=== PATIENT | female | born 1935 | race Caucasian/White ===

== ENCOUNTER 2023-03-31 15:23 | Emergency (ER) | payer MEDICARE, SELFPAY ==
[2023-03-31 15:25] VITALS: BP 152/89; PULSE 90; RESP 16; TEMP 36.5; O2SAT 99
--- NOTE | 2023-03-31 15:25 | ECG_ITS ---
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 Measurements Intervals [place] Rate: 80 P: 53 NM: 157 QRS: 15 QRSD: 85 T: 51 QT: 371 QTc: 429 Interpretive Statements SINUS RHYTHM WITH OCCASIONAL VENTRICULAR PREMATURE COMPLEXES MINIMAL ST DEPRESSION [0.025+ mV ST DEPRESSION] No previous ECG available for comparison Electronically Signed On 03-31-2023 17:23:32 CDT by Hiram Bernabe M.D. [email or web address]
--- NOTE | 2023-03-31 15:26 | XR_ITS ---
WS: [id number] EXAMINATION: XR chest 1V portable [id number] REASON FOR EXAM: dyspnea/cough COMPARISON: None available. ORDER DATE: 03/31/2023 3:28 PM FINDINGS: There are scattered perihilar granulomatous calcifications. There are chronically increased perihilar /basilar bronchovascular and interstitial thickening with hyperinflation. The cardiac and mediastin al outlines are unremarkable. There are no pleural effusions. There are no discrete noncalcified pulm onary nodules. Chronic degenerative spine changes are present which includes septic dextroscoliosis i n the upper thoracic region. There are subacute healing fractures involving the first through the six th left ribs. XR/XR chest 1V portable [id number] IMPRESSION: DIFFUSE PULMONARY CHANGES OF COPD. NO ACUTE PULMONARY CHANGE. NUMEROUS LEFT RIB HEALING FRACTURES
[2023-03-31 15:41] LABS: Basophils # 0.1 10^3/uL (0.0-0.1); Basophils % 0.7 %; Eosinophils # 0.2 10^3/uL (0.0-0.8); Eosinophils % 2.2 %; Hematocrit 38.8 % (37.0-47.0); Lymphocytes # 2.5 10^3/uL (0.8-4.8); Mean Corpuscular HGB Conc 33.5 g/dL (30.0-36.0); Mean Corpuscular Hemoglobin 28.6 pg (28.0-34.0); Mean Corpuscular Volume 85.5 fl (81-99); Mean Platelet Volume 9.1 fL (7.4-10.4); Monocytes # 0.7 10^3/uL (0.2-0.9); Monocytes % 9.5 %; Neutrophils # 3.43 10^3/uL (1.8-7.7); Neutrophils % 50.2 %; Nucleated Red Blood Cells % 0 %; Platelet Count 351 10^3/cmm (130-400); Red Blood Count 4.54 10^6/uL (4.1-5.3); Red Cell Distribution Width 14.2 % (12.1-15.1); White Blood Count 6.8 10^3/uL (4.0-10.0)
--- NOTE | 2023-03-31 15:52 | CTR_ITS ---
PROCEDURE INFORMATION: Exam: CT Head Without Contrast Exam date and time: 03/31/2023 3:56 PM Age: 87 years old Clinical indication: Injury or trauma; Fall; Blunt trauma (contusions or hematomas); Additional info: Trauma, closed head injury TECHNIQUE: Imaging protocol: Computed tomography of the head without contrast. Radiation optimization: All CT scans at this facility use at least one of these dose optimization techniques: automated exposure control; mA and/or kV adjustment per patient size (includes targeted exams where dose is matched to clinical indication); or iterative reconstruction. REPORTING DATA: Count of CT and Cardiac NM exams in prior 12 months: This patient has received 0 known CTs and 0 known cardiac nuclear medicine studies in the 12 months prior to the current study. COMPARISON: No relevant prior studies available. RADIATION DOSE METRICS: Total DLP (mGy-cm): 1050.98 FINDINGS: Brain: Atrophic or involutional change for age indicates volume loss. Diffuse chronic small-vessel disease change in the periventricular deep white matter. No intracranial hemorrhage or hematoma is seen. No mass effect or shift of midline structures. No findings to indicate territorial or large vessel ischemic infarct. Cerebral ventricles: Ventricular enlargement with atrophy. Paranasal sinuses: Visualized sinuses are unremarkable. No fluid levels. Mastoid air cells: Visualized mastoid air cells are well aerated. Bones/joints: Bone windows of the skull show no fracture or acute osseous abnormality. Soft tissues: Soft tissue scalp swelling/hematoma on the left. CT/CT head wo con* [id number] IMPRESSION: 1. Chronic changes related to atrophy or volume loss and chronic small-vessel disease change bilaterally. 2. No acute intracranial abnormality. 3. Left-sided scalp swelling/hematoma. No findings of skull fracture.
[2023-03-31 15:57] VITALS: BP 137/92; BP 158/92; BP 166/100; PULSE 82; PULSE 87; PULSE 89
[2023-03-31 15:57] LABS: Alanine Aminotransferase 13 U/L (0-33); Albumin Level 4.4 g/dL (3.5-5.2); Alkaline Phosphatase 102 U/L (35-105); Anion Gap 15.6 (5-19); Aspartate Amino Transferase 16 U/L (0-32); Blood Urea Nitrogen 17 mg/dL (8-23); Calcium 9.3 mg/dL (8.5-10.5); Carbon Dioxide 27 mmol/L (22-29); Chloride 101 mmol/L (98-107); Globulin 2.6 g/dL (1.3-4.6); Glucose 99 mg/dL (65-115); Osmolality Calculated 292 mOsm/kg (285-295); Potassium 3.6 mmol/L (3.5-5.1); Sodium 140 mmol/L (136-145); Total Bilirubin 0.2 mg/dL (0.15-1.2)
[2023-03-31 15:58] VITALS: BP 136/92; PULSE 87; O2SAT 98
[2023-03-31 16:34] VITALS: BP 139/78; PULSE 78; O2SAT 90
--- NOTE | 2023-03-31 17:04 | W.ED.SYNCOPE ---
HPI - Syncope General: Chief Complaint: Syncope Stated Complaint: syncope Time Seen by Provider: 03/31/23 15:25 Source: patient Mode of arrival: EMS History of Present Illness: 87-year-old female presents to the emergency room after syncopal episode while at the eye doctor. She was at check-in and had been standing she fell to the ground hit her head on the floor had loss conscious on arrival here she is awake alert but very disoriented. She is not aware of time place or person. She thinks she is in [place] she has a known history of severe dementia and she denies abdominal or chest pain or any other symptoms. MD complaint: loss of consciousness Onset (ago): minute(s) Duration of episode: 3 -: minutes(s) Prodromal symptoms: none Witnessed: Yes - by Bystander Injuries sustained associated with event: none Associated symptoms: Deny abdominal pain, chest pain, fever(s), headache(s), lightheadedness, nausea, short of breath, vertigo or weakness Treatments prior to arrival: none Review of Systems General: Reports: ROS unobtainable due to mental status Const: Denies: fever(s) Card: Denies: chest pain or lightheadedness GI: Denies: abdominal pain or nausea Neuro: Denies: headache(s) or vertigo PFSH ED PFSH: Medical History (Updated 03/31/23 @ 17:30 by Rakesh Owusu DO) Dementia Physical Exam Const: GENERAL APPEARANCE: cooperative and comfortable ORIENTATION/CONSCIOUSNESS: Yes awake, Yes oriented to person, Yes oriented to place and Yes oriented to time HENMT: COMMON NORMALS: normocephalic, atraumatic and hearing grossly normal bilaterally HEAD & SCALP: normocephalic and atraumatic Resp: COMMON NORMALS: normal respiratory effort, No retractions, No use of accessory muscles and clear to auscultation bilaterally AUSCULTATION: clear to auscultation bilaterally Cardio: COMMON NORMALS: regular rate, regular rhythm and No murmurs present (Cardio) RATE: regular rate RHYTHM: regular rhythm GI: COMMON NORMALS: Soft to palpation and No hepatosplenomegaly present AUSCULTATION: Yes normoactive bowel sounds PALPATION: Yes Soft to palpation, No Tenderness to palpation present (GI), No Guarding due to palpation present (GI) and Yes No hepatosplenomegaly present Extremity: COMMON NORMALS: normal to inspection, capillary refill normal, no clubbing, cyanosis or edema, no calf tenderness and no pedal edema Neuro: SENSORIUM/ORIENTATION: Yes oriented to person, Yes oriented to place and Yes oriented to time Skin: COMMON NORMALS: no rashes or lesions noted GENERAL SKIN EXAM: no rashes or lesions noted Course Vital Signs: Vital signs: Vital Signs Temperature 97.7 F 03/31/23 15:25 Pulse Rate 99 03/31/23 17:47 Respiratory Rate 16 03/31/23 15:25 Blood Pressure 168/96 03/31/23 17:47 Pulse Oximetry 94 03/31/23 17:47 Oxygen Delivery Me thod Room Air 03/31/23 15:25 MDM - Syncope Medical Decision Making Labs and imaging reviewed. CT is unremarkable. Family wishes to take patient home. She is confused she definitely wants to go home. We will ambulate her without any difficulty discharge patient home set up for outpatient echocardiogram and 48-hour Holter monitor. Return if she has further problems. Medical Records I reviewed the patient's medical records. Lab Data I reviewed the patient's lab results. 03/31/23 15:30 03/31/23 15:30 Radiology Impressions Chest X-Ray 03/31/23 15:26 IMPRESSION: DIFFUSE PULMONARY CHANGES OF COPD. NO ACUTE PULMONARY CHANGE. NUMEROUS LEFT RIB HEALING FRACTURES Head CT 03/31/23 15:52 IMPRESSION: 1. Chronic changes related to atrophy or volume loss and chronic small-vessel disease change bilaterally. 2. No acute intracranial abnormality. 3. Left-sided scalp swelling/hematoma. No findings of skull fracture. Laboratory Results WBC 6.8 10^3/uL (4.0-10.0) 03/31/23 15:30 RBC 4.54 10^6/uL (4.1-5.3) 03/31/23 15:30 Hgb 13.0 g/dL (11.5-15.3) 03/31/23 15:30 Hct 38.8 % (37.0-47.0) 03/31/23 15:30 MCV 85.5 fl (81-99) 03/31/23 15:30 MCH 28.6 pg (28.0-34.0) 03/31/23 15:30 MCHC 33.5 g/dL (30.0-36.0) 03/31/23 15:30 RDW 14.2 % (12.1-15.1) 03/31/23 15:30 Plt Count 351 10^3/cmm (130-400) 03/31/23 15:30 MPV 9.1 fL (7.4-10.4) 03/31/23 15:30 Neut % (Auto) 50.2 % 03/31/23 15:30 Lymph % (Auto) 37.0 % 03/31/23 15:30 [place] % (Auto) 9.5 % 03/31/23 15:30 Eos % (Auto) 2.2 % 03/31/23 15:30 Baso % (Auto) 0.7 % 03/31/23 15:30 Neut # (Auto) 3.43 10^3/uL (1.8-7.7) 03/31/23 15:30 Lymph # (Auto) 2.5 10^3/uL (0.8-4.8) 03/31/23 15:30 [place] # (Auto) 0.7 10^3/uL (0.2-0.9) 03/31/23 15:30 Eos # (Auto) 0.2 10^3/uL (0.0-0.8) 03/31/23 15:30 Baso # (Auto) 0.1 10^3/uL (0.0-0.1) 03/31/23 15:30 Nucleated RBC % (auto) 0 % 03/31/23 15:30 Nucleated RBCs # 0.0 /100WBC 03/31/23 15:30 Sodium 140 mmol/L (136-145) 03/31/23 15:30 Potassium 3.6 mmol/L (3.5-5.1) 03/31/23 15:30 Chloride 101 mmol/L (98-107) 03/31/23 15:30 Carbon Dioxide 27 mmol/L (22-29) 03/31/23 15:30 Anion Gap 15.6 (5-19) 03/31/23 15:30 BUN 17 mg/dL (8-23) 03/31/23 15:30 Creatinine 0.7 mg/dL (0.5-0.9) 03/31/23 15:30 GFR Calculation Not Reportable 03/31/23 15:30 Glucose 99 mg/dL (65-115) 03/31/23 15:30 Calculated Osmolality 292 mOsm/kg (285-295) 03/31/23 15:30 Calcium 9.3 mg/dL (8.5-10.5) 03/31/23 15:30 Total Bilirubin 0.2 mg/dL (0.15-1.2) 03/31/23 15:30 AST 16 U/L (0-32) 03/31/23 15:30 ALT 13 U/L (0-33) 03/31/23 15:30 Alkaline Phosphatase 102 U/L (35-105) 03/31/23 15:30 Total Protein 7.0 g/dL (6.6-8.7) 03/31/23 15:30 Albumin 4.4 g/dL (3.5-5.2) 03/31/23 15:30 Globulin 2.6 g/dL (1.3-4.6) 03/31/23 15:30 Discharge Plan Discharge Patient Disposition: Home Clinical Impression: Syncope due to orthostatic hypotension, Dementia Condition: Stable Discharge Orders: Discharge ED (Routine); Ordered 03/31/23 Ordered By: Rakesh Owusu Referrals: Claudio Parrish [Primary Care Provider] - Discharge Diet: Usual diet Discharge Activity: Increase activity as tolerated Patient Instructions: Opioid Safety, Pain Management Activity Restrictions/Additional Instructions: You were seen today after a single episode recommend that you have an outpatient echocardiogram and 48-hour Holter monitor Case management make arrangements for these follow-up with your primary care physician after this. Coding Level of Care Code ED Sound Technician for Huma Springer
[2023-03-31 17:47] VITALS: BP 168/96; PULSE 99; O2SAT 94
--- NOTE | 2023-04-01 10:59 | PC.SOCIAL ---
Addendum entered by Ellie Fournier 04/30/23 12:33: Both of these appointments were cancelled Addendum entered by Ellie Fournier 04/18/23 12:37: Patient has a 48 hour halter monitor scheduled for Friday, April 23, 2023 at [facility]. Original Note: Orders for echo faxed to [facility], and orders for heart monitor faxed to both centralized scheduling as well as cardiology clinic.
== END 2023-03-31 17:48 | disposition home or self-care (01) ==
PROVIDERS: Emergency Provider Family Medicine; PCP Family Medicine
DX: I95.1 Orthostatic hypotension (principal); F03.90 Unspecified dementia, unspecified severity, without behavioral disturbance, psychotic disturbance, mood disturbance, and anxiety
CPT/HCPCS: 70450; 71045; 80053; 85025; 93005; 99285

== ENCOUNTER 2023-10-24 13:45 | Inpatient (IN) | payer MEDICARE, SELFPAY ==
[2023-10-24] VITALS (9 sets, daily range): BP systolic 141–163; BP diastolic 80–97; PULSE 61–82; RESP 14–18; TEMP 36.8–37.6; O2SAT 94–97; BMI 18.1; BMI 18.7
--- NOTE | 2023-10-24 14:32 | ED_ITS ---
HPI - Weakness 2 General: Chief complaint: Weakness Stated complaint: weakness Time Seen by Provider: 10/24/23 14:15 Source: family Mode of arrival: wheelchair Limitations: altered mental status (chronic dementia) History of Present Illness: Patient is an 88-year-old female with a history of dementia and interstitial lung disease here along with her , son, and daughter for concerns of weakness and inability to care for herself. Son states a few weeks ago he, himself, developed the crud that is going around consisting of cough/congestion. He states last week his father/patient's developed similar symptoms and then the patient starting having cough/congestion about 4 days ago. Family states the recent illness has caused her to be so weak she is unable to ambulate or care for herself at home. Family states she is not eating. is 89 and recently underwent heart surgery and cannot care for her either. Daughter is flying back home tomorrow and can no longer stay to care for her. They feel like her dementia has significantly worsened over the past 3 months. She is not running fevers. No vomiting or diarrhea. They state her chest rattles and she is too weak to cough up the mucous. MD Complaint: generalized weakness Onset (ago): day(s) Duration: constant Location: generalized Migration: none Severity: moderate Relieving factors: none Exacerbating factors: none Context: recent illness Associated symptoms: Denies chest pain, chills, dysuria, fever(s), headache(s), nausea, syncope or vomiting Review of Systems 2 Const: Reports: fatigue; Denies: fever(s), chills or body aches Eyes: Denies: change in vision, blurry vision, photophobia, eye discomfort, eye discharge, eye redness, yellow eyes, floaters or seeing flashes ENMT: Denies: throat pain, odynophagia, ear or mastoid pain, nasal discharge, nasal congestion or sinus pain Card: Reports: orthopnea (family states she rattles more when lying flat); Denies: chest pain, palpitations, edema, swelling of feet/ankles, lightheadedness, syncope, pre-syncope, dyspnea on exertion, leg pain with exertion or acrocyanosis Resp: Reports: productive cough and chest congestion; Denies: non-productive cough, wheezing, stridor, pain on inspiration or hemoptysis GI: Denies: abdominal pain, nausea, vomiting or diarrhea : Reports: other (chronic incontinence ); Denies: flank pain or dysuria Musc: Denies: neck pain, back pain, extremity pain or joint pain Skin/Breast: Denies: rash Neuro: Reports: difficulty walking (secondary to weakness); Denies: headache(s), numbness in extremities, sensory changes, lack of coordination or dizziness PFSH ED 2 PFSH: Medical History Dementia Physical Exam 2 Const: COMMON NORMALS: no acute distress and alert EXAM LIMITATIONS: a ltered mental status (chronic dementia) GENERAL APPEARANCE: cooperative N UTRITIONAL APPEARANCE: thin ORIENTATION/CONSCIOUSNESS: Yes awake and Yes oriented to person HENMT: COMMON NORMALS: normocephalic, atraumatic and Normal external nose present HEAD & SCALP: normal to inspection, normocephalic and atraumatic F DREW & SINUS: normal facial exam and face symmetric NOSE: Normal external nose present MOUTH: Normal oral and palatal mucosa present and lip normal T HROAT: posterior oropharynx normal and tonsils normal Eye: GENERAL EYE: appearance normal, both eyes and all related structures Neck/C-Spine: COMMON NORMALS: no lymphadenopathy and no meningeal signs Chest: COMMONS NORMALS: normal inspection of the chest and normal palpation of entire chest wall Resp: COMMON NORMALS: normal respiratory effort and clear to auscultation bilaterally AUSCULTATION: clear to auscultation bilaterally Cardio: COMMON NORMALS: regular rate and regular rhythm RATE: regular rate RHYTHM: regular rhythm GI: COMMON NORMALS: Normal to inspection, nondistended, normoactive bowel sounds present, Soft to palpation and non-tender PALPATION: Yes Soft to palpation : COMMON NORMALS: Yes no CVA tenderness BLADDER/KIDNEY EXAM: Yes no CVA tenderness Back/Pelvis: COMMON NORMALS: no CVA tenderness and thoracic and lumbar spine normal to inspection Extremity: COMMON NORMALS: normal to inspection GENERAL: Yes normal exam except as noted Neuro: OMER COMA SCALE: document GCS findings [place] coma scale eye opening: Spontaneous [place] coma scale verbal response: Orientated [place] coma scale motor response: Obey commands [place] coma scale total score: 15 COMMON NORMALS: moves all extremities, no focal motor deficits and no sensory deficits noted SENSORIUM/ORIENTATION: Yes alert and Yes oriented to person M ENINGEAL SIGNS: Yes no meningeal signs GAIT: Yes Unable to assess gait Skin: COMMON NORMALS: no rashes or lesions noted GENERAL SKIN EXAM: no rashes or lesions noted Course 2 Vital Signs: Vital signs: Vital Signs Temperature 98.2 F 10/24/23 13:52 Pulse Rate 71 10/24/23 15:04 Respiratory Rate 16 10/24/23 15:04 Blood Pressure 150/81 10/24/23 15:04 Pulse Oximetry 96 10/24/23 15:04 Oxygen Delivery Me thod Room Air 10/24/23 15:04 MDM - Weakness Medical Decision Making Patient is an 88-year-old female here along with family for concerns of upper respiratory illness that has caused patient's significant weakness, decline of her dementia, and inability to care for herself. Patient lives with her 91-year-old who is unable to care for her. Patient's blood work overall is fairly unremarkable. Her cathed urine specimen is contaminated. CXR is unremarkable. At this time I am unable to send patient home as she is not able to care for herself at home and her cannot care for her either. I spoke to hospitalist Dr. De La Rosa who is graciously willing to admit patient. Lab Data 10/24/23 14:42 10/24/23 14:42 Laboratory Results WBC 4.63 10^3/uL (3.29-11.43) 10/24/23 14:42 RBC 4.52 10^6/uL (3.85-5.65) 10/24/23 14:42 Hgb 12.90 g/dL (11.27-16.99) 10/24/23 14:42 Hct 38.0 % (36-47) 10/24/23 14:42 MCV 84.1 fl (85-98) L 10/24/23 14:42 MCH 28.5 pg (27-33) 10/24/23 14:42 MCHC 33.9 g/dL (30-55) 10/24/23 14:42 RDW 15.9 % (12.1-15.1) H 10/24/23 14:42 Plt Count 256 10^3/cmm (157-399) 10/24/23 14:42 MPV 8.7 fL (7.4-10.4) 10/24/23 14:42 Neut % (Auto) 67.7 % 10/24/23 14:42 Lymph % (Auto) 18.6 % 10/24/23 14:42 [place] % (Auto) 12.5 % 10/24/23 14:42 Eos % (Auto) 0.2 % 10/24/23 14:42 Baso % (Auto) 0.6 % 10/24/23 14:42 Neut # (Auto) 3.13 10^3/uL (1.8-7.7) 10/24/23 14:42 Lymph # (Auto) 0.9 10^3/uL (0.8-4.8) 10/24/23 14:42 [place] # (Auto) 0.6 10^3/uL (0.2-0.9) 10/24/23 14:42 Eos # (Auto) 0.0 10^3/uL (0.0-0.8) 10/24/23 14:42 Baso # (Auto) 0.0 10^3/uL (0.0-0.1) 10/24/23 14:42 Nucleated RBC % (auto) 0 % 10/24/23 14:42 Nucleated RBCs # 0.0 /100WBC 10/24/23 14:42 Sodium 136 mmol/L (136-145) 10/24/23 14:42 Potassium 4.0 mmol/L (3.5-5.1) 10/24/23 14:42 Chloride 96 mmol/L (98-107) L 10/24/23 14:42 Carbon Dioxide 27 mmol/L (22-29) 10/24/23 14:42 Anion Gap 17.0 (5-19) 10/24/23 14:42 BUN 16 mg/dL (8-23) 10/24/23 14:42 Creatinine 0.7 mg/dL (0.5-0.9) 10/24/23 14:42 GFR Calculation Not Reportable 10/24/23 14:42 Glucose 113 mg/dL (65-115) 10/24/23 14:42 Calculated Osmolality 284 mOsm/kg (285-295) L 10/24/23 14:42 Calcium 9.5 mg/dL (8.5-10.5) 10/24/23 14:42 Total Bilirubin 0.3 mg/dL (0.15-1.2) 10/24/23 14:42 AST 20 U/L (0-32) 10/24/23 14:42 ALT 18 U/L (0-33) 10/24/23 14:42 Alkaline Phosphatase 75 U/L (35-105) 10/24/23 14:42 Total Protein 7.0 g/dL (6.6-8.7) 10/24/23 14:42 Albumin 3.9 g/dL (3.5-5.2) 10/24/23 14:42 Globulin 3.1 g/dL (1.3-4.6) 10/24/23 14:42 Urine Color Yellow (Yellow) 10/24/23 15:22 Urine Appearance Hazy (CLEAR) A 10/24/23 15:22 Urine pH 5 (5-7) 10/24/23 15:22 Ur Specific [place] 1.025 (1.005-1.030) 10/24/23 15:22 Urine Protein Trace (Negative) 10/24/23 15:22 Urine Glucose (UA) Norm (Normal) 10/24/23 15:22 Urine Ketones 1+ (Negative) H 10/24/23 15:22 Urine Blood 3+ (Negative) H 10/24/23 15:22 Urine Nitrate Negative (Negative) 10/24/23 15:22 Urine Bilirubin Neg (Negative) 10/24/23 15:22 Urine Urobilinogen Norm mg/dL (Negative) 10/24/23 15:22 Ur Leukocyte Esterase 1+ (Negative) H 10/24/23 15:22 Urine RBC 0-4 /hpf (0-2) H 10/24/23 15:22 Urine WBC 5-10 /hpf (0-5) H 10/24/23 15:22 Ur Squamous Epith Cells 15-25 /hpf (0-5) H 10/24/23 15:22 Amorphous Sediment Not Reportable 10/24/23 15:22 Urine Bacteria Trace /hpf (NONE) 10/24/23 15:22 All radiology interpretation(s) finalized by discharge Discharge Plan Discharge Patient Disposition: Admitted As Inpatient Clinical Impression: Unable to care for self, Upper respiratory infection, Dementia Condition: Stable Referrals: Claudio Parrish [Primary Care Provider] - Coding Level of Care Code ED Security And Privacy Consultant for Stephanieg iGan
--- NOTE | 2023-10-24 14:32 | XR_ITS ---
WS: [id number] PORTABLE CHEST HISTORY: chest pain COMPARISON: 03/31/2023 Mild pulmonary fibrosis, greatest at the lung bases. There is similar to the prior study. No areas of dense consolidation. Pulmonary vasculature appears similar to the prior study. No pleural effusion o r pneumothorax. Cardiac size: Mildly enlarged cardiac silhouette. Mediastinum/Aorta: Mild atherosclerosis aorta. Osteopenia. Nonunion fracture distal LEFT clavicle. Additional healing fractures involving several ri bs of the upper LEFT thorax. IMPRESSION: 1. Pulmonary fibrosis with no pneumonia. 2. Mild cardiomegaly and atherosclerosis aorta.
[2023-10-24 14:48] LABS: Basophils % 0.6 %; Eosinophils % 0.2 %; Lymphocytes # 0.9 10^3/uL (0.8-4.8); Lymphocytes % 18.6 %; Mean Corpuscular HGB Conc 33.9 g/dL (30-55); Mean Corpuscular Hemoglobin 28.5 pg (27-33); Mean Corpuscular Volume 84.1 fl (85-98); Mean Platelet Volume 8.7 fL (7.4-10.4); Monocytes # 0.6 10^3/uL (0.2-0.9); Monocytes % 12.5 %; Neutrophils # 3.13 10^3/uL (1.8-7.7); Neutrophils % 67.7 %; Nucleated Red Blood Cells % 0 %; Platelet Count 256 10^3/cmm (157-399); Red Blood Count 4.52 10^6/uL (3.85-5.65); Red Cell Distribution Width 15.9 % (12.1-15.1); White Blood Count 4.63 10^3/uL (3.29-11.43)
[2023-10-24] MEDS: sodium chloride 0.9% 500 ML IV (15:02)
[2023-10-24 15:05] LABS: Alanine Aminotransferase 18 U/L (0-33); Albumin Level 3.9 g/dL (3.5-5.2); Alkaline Phosphatase 75 U/L (35-105); Aspartate Amino Transferase 20 U/L (0-32); Blood Urea Nitrogen 16 mg/dL (8-23); Calcium 9.5 mg/dL (8.5-10.5); Carbon Dioxide 27 mmol/L (22-29); Chloride 96 mmol/L (98-107); Globulin 3.1 g/dL (1.3-4.6); Glucose 113 mg/dL (65-115); Osmolality Calculated 284 mOsm/kg (285-295); Sodium 136 mmol/L (136-145); Total Bilirubin 0.3 mg/dL (0.15-1.2)
--- NOTE | 2023-10-24 15:27 | PC.NURSE ---
PT ARRIVED TO ED FOR WEAKNESS, DECREASED COGNITIVE ABILITY WITH DEMENTIA AND COUGH. FAMILY REPORTS PT HAS SOME PHLEM BUT IS UNABLE TO COUGH IT UP.
[2023-10-24 15:33] LABS: Add Urine Culture? No; Add Urine Microscopic? YES; Bacteria Urine TRACE /hpf; Bilirubin Urine Neg (Negative); Blood Urine 3+ (Negative); Glucose Urine UA Norm (Normal); Ketones Urine 1+ (Negative); Leukocyte Esterase Urine 1+ (Negative); Nitrate Urine Negative (Negative); Protein Urine Trace (Negative); RBC Urine 0-4 /hpf (0-2); Specific Gravity, Urine 1.025 (1.005-1.030); Squamous Epithelial Cell Urine 15-25 /hpf (0-5); Urine Appearance Hazy (CLEAR); Urine Color Yellow (Yellow); Urobilinogen Urine Norm (Negative); pH Urine 5 (5-7)
--- NOTE | 2023-10-24 16:30 | CTR_ITS ---
PROCEDURE INFORMATION: Exam: CT Head Without Contrast Exam date and time: 10/24/2023 4:41 PM Age: 88 years old Clinical indication: Altered mental status/memory loss; Confusion or disorientation; Additional info: AMS TECHNIQUE: Imaging protocol: Computed tomography of the head without contrast. Radiation optimization: All CT scans at this facility use at least one of these dose optimization techniques: automated exposure control; mA and/or kV adjustment per patient size (includes targeted exams where dose is matched to clinical indication); or iterative reconstruction. COMPARISON: CT head wo con* [id number] 03/31/2023 3:56 PM RADIATION DOSE METRICS: Total DLP (mGy-cm): 824.48 FINDINGS: Brain: No hemorrhage. Chronic white matter and senescent changes similar to prior exam. No findings to suggest acute infarct. Cerebral ventricles: Reflect volume loss. Paranasal sinuses: Visualized sinuses are grossly clear with minimal mucosal thickening and/or retention cyst formation. Mastoid air cells: No mastoid effusion. Bones/joints: No acute findings. Soft tissues: No acute findings. CT/CT head wo con* [id number] IMPRESSION: No acute intracranial abnormality. Chronic white matter and senescent changes.
--- NOTE | 2023-10-24 16:30 | CTR_ITS ---
PROCEDURE INFORMATION: Exam: CT Chest Without Contrast; Diagnostic Exam date and time: 10/24/2023 4:45 PM Age: 88 years old Clinical indication: Dyspnea; Additional info: SOB TECHNIQUE: Imaging protocol: Diagnostic computed tomography of the chest without contrast. Radiation optimization: All CT scans at this facility use at least one of these dose optimization techniques: automated exposure control; mA and/or kV adjustment per patient size (includes targeted exams where dose is matched to clinical indication); or iterative reconstruction. COMPARISON: CR XR chest 1V portable [id number] 10/24/2023 2:55 PM RADIATION DOSE METRICS: Total DLP (mGy-cm): 250.48 FINDINGS: Lungs: Interstitial and fibrotic changes with extensive subpleural reticulation and honeycombing, bronchiectasis and a lower lobe gradient. Areas of more focal consolidation peripherally embedded within the fibrotic changes see series 5, image 35. Pleural spaces: No pneumothorax or pleural effusion. Heart: Coronary calcifications. No pericardial effusion. Lymph nodes: Slightly prominent mediastinal/hilar lymph nodes likely reactive. Vasculature: Ascending aorta measures 4.3 cm. Bones/joints: No acute findings Soft tissues: No acute findings. CT/CT chest wo con [id number] IMPRESSION: Fibrotic lung disease with superimposed opacities likely infectious/inflammatory. 4.3 cm diameter of the ascending aorta.
--- NOTE | 2023-10-24 16:30 | XRR_ITS ---
PROCEDURE INFORMATION: Exam: XR Bilateral Hips Exam date and time: 10/24/2023 5:11 PM Age: 88 years old Clinical indication: Pain; Other: Weakness; Additional info: Weakness, inability to walk TECHNIQUE: Imaging protocol: Radiologic exam of the bilateral hips. Views: 2 views of hips with pelvis when performed. COMPARISON: No relevant prior studies available. FINDINGS: Bones/joints: Slight cortical irregularity of the medial left pubic ramus. No femoral fracture or hip dislocation. Moderate bilateral hip osteoarthritis. Soft tissues: No acute findings. XR/XR hip BI 3-4V wo/w pel [id number] IMPRESSION: Cortical irregularity of the left pubic ramus is favored to chronic finding. If there is further clinical concern CT can provide further characterization.
--- NOTE | 2023-10-24 16:38 | P.HP_ITS ---
Providers/Chief Complaint 2 Primary Care Provider: Claudio Parrish Chief Complaint: weakness History of Present Illness Khloe Smith is a 88 year old female with a past medical history of interstitial lung disease, history of dementia, history of aortic aneurysm, who presents to [facility] due to increased weakness, increased confusion, poor appetite, cough, congestion. Patient has a history of dementia, diagnosed by primary care, at baseline about 6 months ago patient was able to walk, with a walker, able to feed herself, family does note coughing at times when she eats, she has had a few falls, resulting in a clavicular fracture, rib fractures, no falls in the last month that they can remember, her memory she could recognize family members, recognize has been. But recently for the last week, the whole family has been sick, with cough congestion runny nose which she has also developed. She has cough, congestion, patient's son tells me that last night they thought she was in a pass away, she looked very ill, she looks short of breath. She is also not eating and drinking, she has been increasingly confused, she has been bedbound. Patient's family have noticed a rapid decline in her functioning and her cognitive abilities, she is less cognizant, at bedside she can recognize her , can recognize her son but cannot remember his name. She can carry out simple conversation she is able to smile for me, but not able to carry out any other task she becomes confused. Patient's family tells me that she has been diagnosed with interstitial lung disease roughly 4-5 years ago and the general studies program chair who gave her that diagnosis told her that it was a terminal diagnosis and she would only have 4 to 7 years to live. Patient's family's concern is that she is not eating and drinking for the last few days, she has been less mobile increasingly confused, having cough congestion, she cannot move on her own, she requires total assistance of activities of daily living. And they are worried about her rapid decline in functioning. Patient's has had heart surgery and cannot take care of her, and patient's son and daughter do not live locally and they have to go back home in the next few days. Patient tells me that patient had a ER visit roughly a few months ago for a syncopal episode she passed out she hit her head, they have never figured out what happened Review of Systems 2 General: Reports: ROS unobtainable due to mental status Medications/Allergies Allergies Allergy/AdvReac Type Severity Reaction Status Date / Time No Known Allergies Allergy Verified 03/31/23 15:29 PFSH Acute 2 PFSH: Medical History (Updated 10/24/23 @ 16:48 by Jack De La Rosa MD) History of aortic aneurysm History of interstitial lung disease Dementia Surgical History (Updated 10/24/23 @ 16:43 by Jack De La Rosa MD) H/O: hysterectomy Family History (Updated 10/24/23 @ 16:44 by Jack De La Rosa MD) Other CAD (coronary artery disease) Social History (Updated 10/24/23 @ 16:44 by Jack De La Rosa MD) Smoking and tobacco/nicotine status: former use of tobacco/nicotine Alcohol intake: never Substance/Drug Use: never Additional social history: She smoked cigarettes in her 20s, does not smoke since Vitals/I&O/Wt Last Vital Signs Temp 98.2 F 10/24/23 13:52 Pulse 71 10/24/23 15:04 Resp 16 10/24/23 15:04 BP 150/81 10/24/23 15:04 Pulse Ox 96 10/24/23 15:04 O2 Del Method Room Air 10/24/23 15:04 Weight last 48 hrs Weight 52.617 kg Physical Exam 2 Const: COMMON NORMALS: no acute distress EXAM LIMITATIONS: altered mental status ORIENTATION/CONSCIOUSNESS: Yes awake, Yes oriented to person and Yes confused; not oriented to place and not oriented to time OTHER: Evidence of temporal muscle wasting, bilateral arms shoulders bilateral calves muscle wasting HENMT: OTHER: Bilateral cervical lymphadenopathy Eye: COMMON NORMALS: Equal, round and reactive pupils present Neck/C-Spine: OTHER: Has cervical lymphadenopathy, Resp: COMMON NORMALS: normal respiratory effort, No retractions and No use of accessory muscles OTHER: Scattered wheezing and crackles in right lower lung rodriguez, Cardio: COMMON NORMALS: no JVD, regular rate, regular rhythm, S1 normal heart sound present and S2 normal heart sound present RATE: regular rate RHYTHM: regular rhythm HEART SOUNDS: S1 normal heart sound present and S2 normal heart sound present GI: COMMON NORMALS: Normal to inspection, nondistended, normoactive bowel sounds present, Soft to palpation and non-tender Extremity: COMMON NORMALS: no pedal edema Neuro: OTHER: Does not follow neurologic testing, but can smile for me, recognize at bedside, does not recognize son Data 10/24/23 14:42 10/24/23 14:42 A&P Assessment and plan (1) Physical deconditioning: (2) Protein calorie malnutrition: (3) Muscle wasting: (4) Dehydration: (5) UTI (urinary tract infection): (6) Respiratory tract infection: (7) Altered mental status: Plan Altered mental status ? Possibly secondary to UTI, possible aspiration pneumonia, respiratory tract infection, dehydration -CT of the head -Ammonia levels, TSH, troponin series Acute dehydration, ? IV fluids UTI ?continue Rocephin Respiratory tract infection, ? Possible aspiration, does have crackles in right lung rodriguez ? Rocephin as above -Await respiratory viral panel -CT chest Physical deconditioning, protein calorie malnutrition, muscle wasting ? PT OT, ? Speech therapy eval, ? Dietary eval code ? Placed on aspiration precautions, ? Dysphagia level 4 diet History of interstitial lung disease History of dementia history of falls, x-ray of bilateral hips as patient is not walking DNR/DNI ? Lovenox for DVT prophylaxis -Inability to care her for herself, -Patient is next of kin is , at bedside, will make decisions for her Attestations 2 Medical Necessity Statement*: Patient requires hospitalization, inpatient, greater than 2 midnights, for altered mental status, acute dehydration, UTI, respiratory tract infection possible aspiration pneumonia, physical deconditioning, protein calorie malnutrition, muscle wasting, with underlying interstitial lung disease, dementia, Diagnoses Physical deconditioning R53.81 Protein calorie malnutrition E46 Muscle wasting M62.50 Dehydration E86.0 UTI (urinary tract infection) N39.0 Respiratory tract infection J98.8 Altered mental status R41.82
[2023-10-24 16:54] LABS: Lactic Sepsis W/Reflex 1.1 mmol/L (0.5-2.2)
[2023-10-24 16:58] LABS: Troponin(5th) Baseline 120 ng/L (0-10)
[2023-10-24 17:06] LABS: Free T4 Free Thyroxine 1.03 ng/dL (0.82-1.77); NT Pro B Type Natriuretic Pept 1208 pg/mL (0-450); Procalcitonin 0.06 ng/mL (0-0.5); T3 Free 1.8 PG/ML (2.0-4.4)
[2023-10-24 17:11] LABS: Adenovirus Not Detected (NOT DETECT); Chlamydia Pneumoniae Not Detected (NOT DETECT); Coronavirus 229E,HKU1,NL63,OC4 Not Detected (NOT DETECT); Human Metapneumovirus Not Detected (NOT DETECT); Human Rhinovirus/Enterovirus Not Detected (NOT DETECT); Influenza A Not Detected (NOT DETECT); Influenza A H1 Not Detected (NOT DETECT); Influenza A H1-2009 Not Detected (NOT DETECT); Influenza A H3 Not Detected (NOT DETECT); Influenza B Not Detected (NOT DETECT); Mycoplasma Pneumoniae Not Detected (NOT DETECT); Parainfluenza Virus Type 1 Not Detected (NOT DETECT); Parainfluenza Virus Type 2 Not Detected (NOT DETECT); Parainfluenza Virus Type 3 Not Detected (NOT DETECT); Parainfluenza Virus Type 4 Not Detected (NOT DETECT); Respiratory Syncytial Virus B Not Detected (NOT DETECT); SARS-COV-2 Not Detected (NOT DETECT)
[2023-10-24 17:16] LABS: C Reactive Protein 30.4 mg/L (0.0-4.9); Creatine Phosphokinase 87 U/L (26-192)
[2023-10-24 17:19] LABS: Respiratory Syncytial Virus A Detected (NOT DETECT)
[2023-10-24 17:26] LABS: Ammonia 32 umol/L (11-51)
--- NOTE | 2023-10-24 17:33 | W.ED.WEAKNES ---
HPI - Weakness General: Chief complaint: Weakness Stated complaint: weakness Time Seen by Provider: 10/24/23 14:15 Source: family Mode of arrival: wheelchair Limitations: altered mental status (chronic dementia) History of Present Illness: MD Complaint: generalized weakness Location: generalized Severity: moderate Relieving factors: none Exacerbating factors: none Context: recent illness ON LICENSE OF [facility] ED PFSH: Medical History (Updated 10/25/23 @ 16:01 by Jack De La Rosa MD) History of aortic aneurysm History of interstitial lung disease Dementia Surgical History (Updated 10/24/23 @ 16:43 by Jack De La Rosa MD) H/O: hysterectomy Family History (Updated 10/24/23 @ 16:44 by Jack De La Rosa MD) Other CAD (coronary artery disease) Social History (Updated 10/24/23 @ 16:44 by Jack De La Rosa MD) Smoking and tobacco/nicotine status: former use of tobacco/nicotine Alcohol intake: never Substance/Drug Use: never Additional social history: She smoked cigarettes in her 20s, does not smoke since Course Vital Signs: Vital signs: Vital Signs Temperature 97.4 F L 10/26/23 11:06 Pulse Rate 84 10/26/23 11:06 Respiratory Rate 18 10/26/23 11:06 Blood Pressure 148/87 10/26/23 11:06 Pulse Oximetry 94 10/26/23 11:06 Oxygen Delivery Me thod Nasal Cannula 10/26/23 11:06 Oxygen Flow Rate 2 10/26/23 08:00 MDM - Weakness Lab Data 10/26/23 05:11 10/26/23 05:[address] 10/24/23 16:30 IMPRESSION: Fibrotic lung disease with superimposed opacities likely infectious/inflammatory. 4.3 cm diameter of the ascending aorta. Head CT 10/24/23 16:30 IMPRESSION: No acute intracranial abnormality. Chronic white matter and senescent changes. Hip/Pelvis X-Ray 10/24/23 16:30 IMPRESSION: Cortical irregularity of the left pubic ramus is favored to chronic finding. If there is further clinical concern CT can provide further characterization. Laboratory Results WBC 4.63 10^3/uL (3.29-11.43) 10/24/23 14:42 RBC 4.52 10^6/uL (3.85-5.65) 10/24/23 14:42 Hgb 12.90 g/dL (11.27-16.99) 10/24/23 14:42 Hct 38.0 % (36-47) 10/24/23 14:42 MCV 84.1 fl (85-98) L 10/24/23 14:42 MCH 28.5 pg (27-33) 10/24/23 14:42 MCHC 33.9 g/dL (30-55) 10/24/23 14:42 RDW 15.9 % (12.1-15.1) H 10/24/23 14:42 Plt Count 256 10^3/cmm (157-399) 10/24/23 14:42 MPV 8.7 fL (7.4-10.4) 10/24/23 14:42 Neut % (Auto) 67.7 % 10/24/23 14:42 Lymph % (Auto) 18.6 % 10/24/23 14:42 [place] % (Auto) 12.5 % 10/24/23 14:42 Eos % (Auto) 0.2 % 10/24/23 14:42 Baso % (Auto) 0.6 % 10/24/23 14:42 Neut # (Auto) 3.13 10^3/uL (1.8-7.7) 10/24/23 14:42 Lymph # (Auto) 0.9 10^3/uL (0.8-4.8) 10/24/23 14:42 [place] # (Auto) 0.6 10^3/uL (0.2-0.9) 10/24/23 14:42 Eos # (Auto) 0.0 10^3/uL (0.0-0.8) 10/24/23 14:42 Baso # (Auto) 0.0 10^3/uL (0.0-0.1) 10/24/23 14:42 Nucleated RBC % (auto) 0 % 10/24/23 14:42 Nucleated RBCs # 0.0 /100WBC 10/24/23 14:42 Sodium 136 mmol/L (136-145) 10/24/23 14:42 Potassium 4.0 mmol/L (3.5-5.1) 10/24/23 14:42 Chloride 96 mmol/L (98-107) L 10/24/23 14:42 Carbon Dioxide 27 mmol/L (22-29) 10/24/23 14:42 Anion Gap 17.0 (5-19) 10/24/23 14:42 BUN 16 mg/dL (8-23) 10/24/23 14:42 Creatinine 0.7 mg/dL (0.5-0.9) 10/24/23 14:42 GFR Calculation Not Reportable 10/24/23 14:42 Glucose 113 mg/dL (65-115) 10/24/23 14:42 Calculated Osmolality 284 mOsm/kg (285-295) L 10/24/23 14:42 Lactic Acid 1.1 mmol/L (0.5-2.2) 10/24/23 14:42 Calcium 9.5 mg/dL (8.5-10.5) 10/24/23 14:42 Total Bilirubin 0.3 mg/dL (0.15-1.2) 10/24/23 14:42 AST 20 U/L (0-32) 10/24/23 14:42 ALT 18 U/L (0-33) 10/24/23 14:42 Alkaline Phosphatase 75 U/L (35-105) 10/24/23 14:42 Creatine Kinase 87 U/L (26-192) 10/24/23 14:42 Troponin T Baseline 120 ng/L (0-10) H* 10/24/23 14:42 C-Reactive Protein 30.4 mg/L (0.0-4.9) H 10/24/23 14:42 NT-Pro-B Natriuret Pep 1208 pg/mL (0-450) H 10/24/23 14:42 Total Protein 7.0 g/dL (6.6-8.7) 10/24/23 14:42 Albumin 3.9 g/dL (3.5-5.2) 10/24/23 14:42 Globulin 3.1 g/dL (1.3-4.6) 10/24/23 14:42 Procalcitonin 0.06 ng/mL (0-0.5) 10/24/23 14:42 Free T4 1.03 ng/dL (0.82-1.77) 10/24/23 14:42 Free T3 1.8 PG/ML (2.0-4.4) L 10/24/23 14:42 Urine Color Yellow (Yellow) 10/24/23 15:22 Urine Appearance Hazy (CLEAR) A 10/24/23 15:22 Urine pH 5 (5-7) 10/24/23 15:22 Ur Specific [place] 1.025 (1.005-1.030) 10/24/23 15:22 Urine Protein Trace (Negative) 10/24/23 15: Urine Glucose (UA) Norm (Normal) 10/24/23 15: Urine Ketones 1+ (Negative) H 10/24/23 15: Urine Blood 3+ (Negative) H 10/24/23 15: Urine Nitrate Negative (Negative) 10/24/23 15: Urine Bilirubin Neg (Negative) 10/24/23 15: Urine Urobilinogen Norm mg/dL (Negative) 10/24/23 15: Ur Leukocyte Esterase 1+ (Negative) H 10/24/23 15: Urine RBC 0-4 /hpf (0-2) H 10/24/23 15:22 Urine WBC 5-10 /hpf (0-5) H 10/24/23 15:22 Ur Squamous Epith Cells 15-25 /hpf (0-5) H 10/24/23 15: Amorphous Sediment Not Reportable 10/24/23 15:22 Urine Bacteria Trace /hpf (NONE) 10/24/23 15:22 Adenovirus (PCR) Not detected (NOT DETECT) 10/24/23 15:06 C. pneumoniae DNA (PCR) Not detected (NOT DETECT) 10/24/23 15:06 Coronavirus 229E (PCR) Not detected (NOT DETECT) 10/24/23 15:06 Human Metapneumovir PCR Not detected (NOT DETECT) 10/24/23 15:06 Influenza A (H1) PCR Not detected (NOT DETECT) 10/24/23 15:06 Influ A (H1/09) PCR Not detected (NOT DETECT) 10/24/23 15:06 Influenza A (H3) PCR Not detected (NOT DETECT) 10/24/23 15:06 Influenza Type A (PCR) Not detected (NOT DETECT) 10/24/23 15:06 Influenza Type B (PCR) Not detected (NOT DETECT) 10/24/23 15:06 M. pneumoniae (PCR) Not detected (NOT DETECT) 10/24/23 15:06 Parainfluenza 1 (PCR) Not detected (NOT DETECT) 10/24/23 15:06 Parainfluenza 2 (PCR) Not detected (NOT DETECT) 10/24/23 15:06 Parainfluenza 3 (PCR) Not detected (NOT DETECT) 10/24/23 15:06 Parainfluenza 4 (PCR) Not detected (NOT DETECT) 10/24/23 15:06 RSV Type A (PCR) Detected (NOT DETECT) A 10/24/23 15:06 RSV Type B (PCR) Not detected (NOT DETECT) 10/24/23 15:06 Entero/Rhino (PCR) Not detected (NOT DETECT) 10/24/23 15:06 SARS-CoV-2 (PCR) Not detected (NOT DETECT) 10/24/23 15:06 Discharge Plan Discharge Patient Disposition: Admitted As Inpatient Admit Provider: Jack De La Rosa Clinical Impression: Unable to care for self, Upper respiratory infection, Dementia Condition: Stable Coding Level of Care Code ED Stemhole Borer And Topper for Huma Springer
[2023-10-24 17:37] LABS: Troponin 5 2HR 111.4 ng/L (0-10); Troponin 5 2HR Delta -8.6 ABS# (0-10)
--- NOTE | 2023-10-24 18:15 | ECG_ITS ---
[facility] Test Date: 2023-10-24 Pat Name: Khloe Smith Department: Room: ED Gender: Female Hvac Estimator: : 1935 Requested By: Jack De La Rosa Order Number: [id number] Manning MD: Hiram Bernabe M.D. Measurements Intervals [place] Rate: 78 P: 30 [place]: 143 QRS: -1 QRSD: 90 T: 38 QT: 388 QTc: 443 Interpretive Statements SINUS RHYTHM Compared to ECG 03/31/2023 15:51:14 Ventricular premature complex(es) no longer present ST (T wave) deviation no longer present Electronically Signed On 10-27-2023 8:06:08 MELT HOUSE CENTRIFUGAL OPERATOR by Hiram Bernabe M.D. [id number]
[2023-10-24] MEDS: enoxaparin 40 mg/0.4 mL Syringe SUBCUT (18:21)
[2023-10-24] MEDS: pantoprazole 40 mg SDV IVP (18:21)
[2023-10-24] MEDS: dextrose 5%-sod chloride 0.9% 1,000 ML 75 ML IV (18:22)
[2023-10-24 21:43] LABS: Troponin 5 6HR 118.8 ng/L (0-10); Troponin 5 6HR Delta -1.2 ng/L (0-12)
[2023-10-24] MEDS: cefTRIAXone 1,000 MG in sodium chloride 0.9% (plus) 50 ML 100 MG IV (22:32)
[2023-10-24] MEDS: methylPREDNISolone sod succ 125 mg/2 mL INJ IVP (22:32)
--- NOTE | 2023-10-24 22:32 | ECG_ITS ---
[facility] Test Date: 2023-10-24 Pat Name: Khloe Smith Department: Room: 275 Gender: Female Financial Sales Professional: : 1935 Requested By: Jack De La Rosa Order Number: [id number] Manning MD: Hiram Bernabe M.D. Measurements Intervals [place] Rate: 65 P: 48 [place]: 148 QRS: -2 QRSD: 94 T: 22 QT: 406 QTc: 422 Interpretive Statements SINUS RHYTHM POSSIBLE ANTERIOR MYOCARDIAL INFARCTION , OF INDETERMINATE AGE [30 ms Q WAVE IN V3/V4, OR R < 0.2 mV IN V4] Compared to ECG 10/24/2023 18:15:19 Myocardial infarct finding now present Electronically Signed On 10-27-2023 8:06:02 WIRE INSULATOR by Hiram Bernabe M.D. [id number]
[2023-10-24] MEDS: azithromycin 500 MG in sodium chloride 0.9% 250 ML 250 MG IV (23:46)
[2023-10-25] VITALS (10 sets, daily range): BP systolic 111–136; BP diastolic 63–90; PULSE 52–84; RESP 16–19; TEMP 36.1–36.8; O2SAT 92–95
[2023-10-25 05:25] LABS: Basophils % 0.2 %; Hematocrit 34.1 % (36-47); Lymphocytes # 0.5 10^3/uL (0.8-4.8); Lymphocytes % 11.8 %; Mean Corpuscular HGB Conc 33.1 g/dL (30-55); Mean Corpuscular Hemoglobin 27.9 pg (27-33); Mean Corpuscular Volume 84.2 fl (85-98); Mean Platelet Volume 9.1 fL (7.4-10.4); Monocytes # 0.1 10^3/uL (0.2-0.9); Monocytes % 2.5 %; Neutrophils # 3.45 10^3/uL (1.8-7.7); Neutrophils % 84.8 %; Nucleated Red Blood Cells % 0 %; Platelet Count 238 10^3/cmm (157-399); Red Blood Count 4.05 10^6/uL (3.85-5.65); Red Cell Distribution Width 15.9 % (12.1-15.1); White Blood Count 4.07 10^3/uL (3.29-11.43)
[2023-10-25] MEDS: dextrose 5%-sod chloride 0.9% 1,000 ML 75 ML IV (05:56)
[2023-10-25 06:00] LABS: Alanine Aminotransferase 15 U/L (0-33); Albumin Level 3.3 g/dL (3.5-5.2); Alkaline Phosphatase 60 U/L (35-105); Anion Gap 13.8 (5-19); Aspartate Amino Transferase 19 U/L (0-32); Blood Urea Nitrogen 12 mg/dL (8-23); Calcium 8.2 mg/dL (8.5-10.5); Carbon Dioxide 26 mmol/L (22-29); Chloride 103 mmol/L (98-107); Globulin 2.5 g/dL (1.3-4.6); Glucose 179 mg/dL (65-115); Magnesium 1.8 mg/dL (1.7-2.3); Osmolality Calculated 292 mOsm/kg (285-295); Phosphorus 2.9 mg/dL (2.5-4.5); Potassium 3.8 mmol/L (3.5-5.1); Sodium 139 mmol/L (136-145); Total Bilirubin 0.2 mg/dL (0.15-1.2); Total Protein 5.8 g/dL (6.6-8.7)
--- NOTE | 2023-10-25 06:00 | USCV_ITS ---
Smith Edinpaola Age: 88 Gender: F : 1935 Exam Date: 10/25/2023 06:57 Ordering Phys: Jack De La Rosa MD Technologist: Larry Callejas Exam Location: [facility] [place] Indication: nstemi BP: 136 / 86 HR: 61 Rhythm: Sinus Technical Quality: Adequate MEASUREMENTS (Male / Female) Normal Values 2D ECHO LVOT Diameter 2.0 cm LV Ejection Fraction MOD 2C 67.8 % LV Ejection Fraction 2C AL 69.4 % LA Diameter 3.0 cm LA Width 3.2 cm LA Height 4.0 cm RA Width 2.6 cm RA Height 4.5 cm Aorta at Sinotubular Diameter 2.1 cm IVC Diameter 1.8 cm M-MODE Aortic Annulus Diameter 2.6 cm LA Ao Ratio MM 1.1 MV E Point Septal Separation 1.0 cm DOPPLER AV Peak Velocity 139.0 cm/s LVOT Peak Velocity 121.0 cm/s AV Area Cont Eq vti 3.8 cm squared AV Area Cont Eq pk 2.7 cm squared MV Peak Velocity 127.0 cm/s MV Area PHT 5.0 cm squared Mitral E to A Ratio 0.5 MV E' Velocity 25.5 cm/s Mitral E to MV E' Ratio 7.8 Mitral E to LV E' Lateral Ratio 6.5 Mitral E to LV E' Septal Ratio 9.6 TR Peak Velocity 247.4 cm/s TR Peak Gradient 24.5 mmHg TR Mean Velocity 181.9 cm/s TR Mean Gradient 14.6 mmHg TR Velocity Time Integral 70.8 cm Right Atrial Pressure 8.0 mmHg Pulmonary Artery Systolic Pressu 32.5 mmHg PV Peak Velocity 64.0 cm/s RV Acceleration Time 0.1 s RV Ejection Time 0.3 s RV AcT/ET 0.4 FINDINGS Left Ventricle Normal left ventricular size, systolic function and wall thickness, with no regional wall motion abnormalities. Normal left ventricular wall thickness.grade 1 diastolic dysfunction filling pattern. Right Ventricle The right ventricle is normal in size and function. Right Atrium The right atrium is normal in size. Left Atrium The left atrium is normal in size. Mitral Valve Structurally normal mitral valve without significant stenosis or prolapse. There is mild mitral regurgitation. Aortic Valve Moderately thickened and calcified aortic valve without significant sclerosis or stenosis. There is mild to moderate aortic regurgitation. Tricuspid Valve Structurally normal tricuspid valve without significant stenosis. There is mild regurgitation. Pulmonary artery systolic pressure is normal. Pulmonic Valve Structurally normal pulmonic valve without significant stenosis. There is no pulmonic regurgitation. Pericardium Normal pericardium without effusion. Aorta Normal ascending aorta dimension. IVC The inferior vena cava appears normal. CONCLUSIONS Parth Foster MD (Electronically Signed) Final Date: 25 October 2023 14:20 S
[2023-10-25] MEDS: aspirin 81 mg EC Tablet PO (11:00)
[2023-10-25] MEDS: enoxaparin 40 mg/0.4 mL Syringe SUBCUT (15:31)
[2023-10-25] MEDS: pantoprazole 40 mg SDV IVP (15:31)
--- NOTE | 2023-10-25 16:00 | P.PN_ITS ---
Subjective 2 Subjective: Patient was seen this morning, she is alert to person, not to place, not to time she can follow commands, she has no complaints this morning she denies any chest pain, no shortness of breath Vitals/I&O/Wt Last Vital Signs Temp 97.2 F L 10/25/23 12:21 Pulse 66 10/25/23 12:21 Resp 18 10/25/23 12:21 BP 124/70 10/25/23 12:21 Pulse Ox 95 10/25/23 12:21 O2 Del Method Room Air 10/25/23 12:21 10/25/23 10/25/23 10/25/23 06:59 14:59 22:59 Intake Total 1647.5 / 1767.5 765 / 765 Balance 1647.5 / 1767.5 765 / 765 Weight last 48 hrs Weight 55.111 kg Weight 54.25 kg Weight 52.617 kg Physical Exam 2 Const: COMMON NORMALS: no acute distress and patient oriented x3 Resp: COMMON NORMALS: normal respiratory effort, No retractions, No use of accessory muscles and clear to auscultation bilaterally AUSCULTATION: clear to auscultation bilaterally Cardio: COMMON NORMALS: regular rate, regular rhythm, S1 normal heart sound present and S2 normal heart sound present RATE: regular rate RHYTHM: r egular rhythm HEART SOUNDS: S1 normal heart sound present and S2 normal heart sound present GI: COMMON NORMALS: Normal to inspection, nondistended, normoactive bowel sounds present, Soft to palpation, non-tender, No hepatosplenomegaly present, no masses and no bruits PALPATION: Yes Soft to palpation and Yes No hepatosplenomegaly present Extremity: COMMON NORMALS: no pedal edema Neuro: COMMON NORMALS: patient oriented x3 Psych: COMMON NORMALS: mental status grossly normal Data 10/25/23 04:55 10/25/23 04:55 A&P Assessment and plan (1) Physical deconditioning: (2) Protein calorie malnutrition: (3) Muscle wasting: (4) Dehydration: (5) UTI (urinary tract infection): (6) Respiratory tract infection: (7) Altered mental status: (8) RSV infection: (9) Pneumonia: (10) NSTEMI (non-ST elevated myocardial infarction): Plan Altered mental status ? Possibly secondary to UTI, pneumonia, respiratory tract infection, dehydration -CT of the head no acute findings -Ammonia levels, TSH, troponin series Pneumonia ? Continue Rocephin, ? Continue azithromycin RSV bronchiolitis, ? Continue prednisone Acute dehydration, ? IV fluids UTI ?continue Rocephin NSTEMI -Aspirin, statin -Cardiac echo Physical deconditioning, protein calorie malnutrition, muscle wasting ? PT OT, ? Speech therapy eval, ? Dietary eval code ? Placed on aspiration precautions, ? Dysphagia level 4 diet History of interstitial lung disease History of dementia history of falls, x-ray of bilateral hips as patient is not walking DNR/DNI ? Lovenox for DVT prophylaxis -Inability to care her for herself, -Patient is next of kin is , at bedside, will make decisions for her Attestations 2 Medical Necessity Statement*: Patient requires hospitalization for altered mental status, pneumonia, RSV bronchiolitis, dehydration, UTI, NSTEMI, physical deconditioning, protein calorie malnutrition, inpatient, greater than 2 midnights Diagnoses Physical deconditioning R53.81 Protein calorie malnutrition E46 Muscle wasting M62.50 Dehydration E86.0 UTI (urinary tract infection) N39.0 Respiratory tract infection J98.8 Altered mental status R41.82 RSV infection B33.8 Pneumonia J18.9 NSTEMI (non-ST elevated myocardial infarction) I21.4
[2023-10-25] MEDS: predniSONE 20 mg Tablet 40 MG PO (18:05)
[2023-10-25] MEDS: azithromycin 500 MG in sodium chloride 0.9% 250 ML 250 MG IV (20:13)
[2023-10-25] MEDS: atorvastatin 40 mg Tablet PO (20:24)
[2023-10-25] MEDS: cefTRIAXone 1,000 MG in sodium chloride 0.9% (plus) 50 ML 100 MG IV (22:52)
[2023-10-26] VITALS (7 sets, daily range): BP systolic 127–159; BP diastolic 76–87; PULSE 67–94; RESP 16–19; TEMP 36.3–36.8; O2SAT 91–95
--- NOTE | 2023-10-26 04:11 | PC.NURSE ---
SALES CONSULTANT RESIDENTIAL MANAGER notified nurse that patient's SPO2 was 77% Nurse and charge nurse responded to patient room and applied 2L O2 via NC and patient SPO2 recovered to 93%. No signs of distress. RT notified via Voalte.
[2023-10-26 05:30] LABS: Basophils % 0.2 %; Hematocrit 33.4 % (36-47); Lymphocytes # 0.8 10^3/uL (0.8-4.8); Mean Corpuscular HGB Conc 33.5 g/dL (30-55); Mean Corpuscular Hemoglobin 27.9 pg (27-33); Mean Corpuscular Volume 83.3 fl (85-98); Mean Platelet Volume 9.2 fL (7.4-10.4); Monocytes # 0.5 10^3/uL (0.2-0.9); Monocytes % 9.1 %; Neutrophils # 4.11 10^3/uL (1.8-7.7); Nucleated Red Blood Cells % 0 %; Platelet Count 255 10^3/cmm (157-399); Red Blood Count 4.01 10^6/uL (3.85-5.65); Red Cell Distribution Width 15.5 % (12.1-15.1); White Blood Count 5.41 10^3/uL (3.29-11.43)
[2023-10-26 05:50] LABS: Alanine Aminotransferase 19 U/L (0-33); Albumin Level 3.5 g/dL (3.5-5.2); Alkaline Phosphatase 68 U/L (35-105); Anion Gap 13.5 (5-19); Aspartate Amino Transferase 26 U/L (0-32); Blood Urea Nitrogen 18 mg/dL (8-23); Calcium 8.7 mg/dL (8.5-10.5); Carbon Dioxide 24 mmol/L (22-29); Chloride 105 mmol/L (98-107); Globulin 2.7 g/dL (1.3-4.6); Glucose 146 mg/dL (65-115); Magnesium 1.8 mg/dL (1.7-2.3); Osmolality Calculated 293 mOsm/kg (285-295); Phosphorus 2.9 mg/dL (2.5-4.5); Potassium 3.5 mmol/L (3.5-5.1); Sodium 139 mmol/L (136-145); Total Bilirubin 0.2 mg/dL (0.15-1.2); Total Protein 6.2 g/dL (6.6-8.7)
[2023-10-26 06:04] LABS: C Reactive Protein 27.6 mg/L (0.0-4.9); NT Pro B Type Natriuretic Pept 4006 pg/mL (0-450)
[2023-10-26] MEDS: aspirin 81 mg EC Tablet PO (09:16)
[2023-10-26] MEDS: predniSONE 20 mg Tablet 40 MG PO (09:16)
--- NOTE | 2023-10-26 17:03 | P.PN_ITS ---
Subjective 2 Subjective: Patient was seen this morning, she is alert to person, not to place, not to time she has no complaints, Vitals/I&O/Wt Last Vital Signs Temp 97.4 F L 10/26/23 11:06 Pulse 84 10/26/23 11:06 Resp 18 10/26/23 11:06 BP 148/87 10/26/23 11:06 Pulse Ox 94 10/26/23 11:06 O2 Del Method Nasal Cannula 10/26/23 11:06 O2 Flow Rate 2 10/26/23 08:00 10/26/23 10/26/23 10/26/23 06:59 14:59 22:59 Intake Total 50 / 1545 720 / 720 Balance 50 / 1545 720 / 720 Weight last 48 hrs Weight 54.233 kg Weight 55.111 kg Weight 54.25 kg Physical Exam 2 Const: COMMON NORMALS: no acute distress Resp: COMMON NORMALS: normal respiratory effort, No retractions, No use of accessory muscles and clear to auscultation bilaterally AUSCULTATION: clear to auscultation bilaterally Cardio: COMMON NORMALS: regular rate, regular rhythm, S1 normal heart sound present and S2 normal heart sound present RATE: regular rate RHYTHM: r egular rhythm HEART SOUNDS: S1 normal heart sound present and S2 normal heart sound present GI: COMMON NORMALS: Normal to inspection, nondistended, normoactive bowel sounds present and non-tender Extremity: COMMON NORMALS: no pedal edema Data 10/26/23 05:11 10/26/23 05:11 A&P Assessment and plan (1) Physical deconditioning: (2) Protein calorie malnutrition: (3) Muscle wasting: (4) Dehydration: (5) UTI (urinary tract infection): (6) Respiratory tract infection: (7) Altered mental status: (8) RSV infection: (9) Pneumonia: (10) NSTEMI (non-ST elevated myocardial infarction): Plan Altered mental status, back to baseline ? Possibly secondary to UTI, pneumonia, respiratory tract infection, dehydration -CT of the head no acute findings -Ammonia levels, TSH, troponin series Pneumonia, currently on 2 L ? Continue Rocephin, ? Continue azithromycin RSV bronchiolitis, ? Continue prednisone Acute dehydration, ? Off IV fluids due to elevated BNP, does not look fluid overloaded UTI ?continue Rocephin NSTEMI -Aspirin, statin -Cardiac echo, cardiac echo shows normal systolic function, no regional wall motion abnormalities Physical deconditioning, protein calorie malnutrition, muscle wasting ? PT OT, ? Speech therapy eval, ? Dietary eval code ? Placed on aspiration precautions, ? Dysphagia level 4 diet History of interstitial lung disease History of dementia history of falls, x-ray of bilateral hips as patient is not walking DNR/DNI ? Lovenox for DVT prophylaxis -Inability to care her for herself, -Patient is next of kin is , at bedside, will make decisions for her Attestations 2 Medical Necessity Statement*: Patient requires hospitalization for altered mental status, pneumonia, RSV bronchiolitis, and NSTEMI, physical deconditioning, receiving IV antibiotics, Diagnoses Physical deconditioning R53.81 Protein calorie malnutrition E46 Muscle wasting M62.50 Dehydration E86.0 UTI (urinary tract infection) N39.0 Respiratory tract infection J98.8 Altered mental status R41.82 RSV infection B33.8 Pneumonia J18.9 NSTEMI (non-ST elevated myocardial infarction) I21.4
[2023-10-26] MEDS: pantoprazole DR 40 mg Tablet PO (17:15)
[2023-10-26] MEDS: enoxaparin 40 mg/0.4 mL Syringe SUBCUT (17:15)
[2023-10-26] MEDS: cefTRIAXone 1,000 MG in sodium chloride 0.9% (plus) 50 ML 100 MG IV (20:15)
[2023-10-26] MEDS: azithromycin 500 MG in sodium chloride 0.9% 250 ML 250 MG IV (21:03)
[2023-10-26] MEDS: atorvastatin 40 mg Tablet PO (21:44)
[2023-10-27] VITALS: BP 134/73; PULSE 75; RESP 21; TEMP 37.6; O2SAT 91
[2023-10-27 03:47] LABS: Basophils % 0.1 %; Eosinophils % 0.1 %; Hematocrit 32.9 % (36-47); Lymphocytes # 1.3 10^3/uL (0.8-4.8); Lymphocytes % 17.6 %; Mean Corpuscular HGB Conc 33.7 g/dL (30-55); Mean Corpuscular Hemoglobin 28.4 pg (27-33); Mean Corpuscular Volume 84.1 fl (85-98); Mean Platelet Volume 9.2 fL (7.4-10.4); Monocytes % 12.8 %; Neutrophils # 5.12 10^3/uL (1.8-7.7); Neutrophils % 68.7 %; Nucleated Red Blood Cells % 0 %; Platelet Count 267 10^3/cmm (157-399); Red Blood Count 3.91 10^6/uL (3.85-5.65); Red Cell Distribution Width 15.9 % (12.1-15.1); White Blood Count 7.45 10^3/uL (3.29-11.43)
[2023-10-27 04:00] VITALS: BP 150/87; PULSE 69; RESP 18; TEMP 36.9; O2SAT 93
[2023-10-27 04:15] LABS: Alanine Aminotransferase 17 U/L (0-33); Albumin Level 3.2 g/dL (3.5-5.2); Alkaline Phosphatase 63 U/L (35-105); Anion Gap 15.3 (5-19); Aspartate Amino Transferase 26 U/L (0-32); Blood Urea Nitrogen 19 mg/dL (8-23); Calcium 8.6 mg/dL (8.5-10.5); Carbon Dioxide 25 mmol/L (22-29); Chloride 105 mmol/L (98-107); Globulin 2.6 g/dL (1.3-4.6); Glucose 112 mg/dL (65-115); Osmolality Calculated 297 mOsm/kg (285-295); Potassium 3.3 mmol/L (3.5-5.1); Sodium 142 mmol/L (136-145); Total Bilirubin 0.2 mg/dL (0.15-1.2); Total Protein 5.8 g/dL (6.6-8.7)
[2023-10-27 06:00] VITALS: BMI 18.3
[2023-10-27 08:20] VITALS: BP 161/91; PULSE 83; RESP 19; TEMP 36.9; O2SAT 90
[2023-10-27] MEDS: pantoprazole DR 40 mg Tablet PO (09:58)
[2023-10-27] MEDS: aspirin 81 mg EC Tablet PO (09:58)
[2023-10-27] MEDS: predniSONE 20 mg Tablet 40 MG PO (09:58)
--- NOTE | 2023-10-27 11:40 | PC.SOCIAL ---
Pg 2 IMM Explained to pt's Pg 2 IMM. No questions voiced. Provided pt a copy. Initialed, dated, & timed a copy & placed in chart.
[2023-10-27 12:29] VITALS: BP 132/76; PULSE 94; RESP 22; TEMP 36.1; O2SAT 90
[2023-10-27 16:47] VITALS: BP 127/82; PULSE 94; RESP 19; TEMP 36.3; O2SAT 91
[2023-10-27] MEDS: enoxaparin 40 mg/0.4 mL Syringe SUBCUT (17:01)
[2023-10-27] MEDS: cefTRIAXone 1,000 MG in sodium chloride 0.9% (plus) 50 ML 100 MG IV (19:54)
--- NOTE | 2023-10-27 19:58 | PM.PN ---
Subjective Subjective: She states overall she is doing well. Denies any complaints. States she is in the [facility]. Cannot tell me the year. Vitals/I&O/Wt Last Vital Signs Temp 97.3 F L 10/27/23 16:47 Pulse 94 10/27/23 16:47 Resp 19 H 10/27/23 16:47 BP 127/82 10/27/23 16:47 Pulse Ox 91 10/27/23 16:47 O2 Del Method Nasal Cannula 10/27/23 16:47 O2 Flow Rate 3.5 10/27/23 04:00 10/27/23 10/27/23 10/27/23 06:59 14:59 22:59 Intake Total 600 / 600 240 / 840 Balance 600 / 600 240 / 840 Weight last 48 hrs Weight 53.07 kg Weight 54.233 kg Physical Exam Narrative: Sitting up in a chair. Const: COMMON NORMALS: alert; negative for patient oriented x3 GENERAL APPEARANCE: cooperative ORIENTATION/CONSCIOUSNESS: Yes awake HENMT: COMMON NORMALS: oropharynx normal Neck/C-Spine: COMMON NORMALS: no JVD Resp: COMMON NORMALS: normal respiratory effort and clear to auscultation bilaterally AUSCULTATION: clear to auscultation bilaterally Cardio: COMMON NORMALS: no JVD, regular rhythm, S1 normal heart sound present, S2 normal heart sound present and No murmurs present (Cardio) RHYTHM: regular rhythm HEART SOUNDS: S1 normal heart sound present and S2 normal heart sound present GI: COMMON NORMALS: Normal to inspection, nondistended, normoactive bowel sounds present, Soft to palpation and non-tender PALPATION: Yes Soft to palpation Extremity: COMMON NORMALS: no joint enlargement and no pedal edema Neuro: COMMON NORMALS: moves all extremities; negative for patient oriented x3 SENSORIUM/ORIENTATION: Yes alert Skin: COMMON NORMALS: no rashes or lesions noted GENERAL SKIN EXAM: no rashes or lesions noted Data 10/27/23 03:20 10/27/23 03:20 A&P Assessment and plan (1) Physical deconditioning: (2) Protein calorie malnutrition: (3) Muscle wasting: (4) Dehydration: (5) UTI (urinary tract infection): (6) Respiratory tract infection: (7) Altered mental status: (8) RSV infection: (9) Pneumonia: (10) NSTEMI (non-ST elevated myocardial infarction): Plan Altered mental status, per report has been back to baseline ? Possibly secondary to UTI, pneumonia, respiratory tract infection, dehydration -CT of the head no acute findings -Ammonia levels, TSH, troponin series Pneumonia, worsening hypoxia, requirement of oxygen up to 3.5 L. ? Continue Rocephin, azithromycin Reviewed vitals, afebrile; CBC, no leukocytosis. Repeat chest x-ray Discussed with disease case manager rn. RSV bronchiolitis, ? Continue prednisone Acute dehydration, ? Off IV fluids due to elevated BNP, does not look fluid overloaded UTI ?continue Rocephin NSTEMI -Aspirin, statin -cardiac echo shows normal systolic function, no regional wall motion abnormalities Physical deconditioning, protein calorie malnutrition, muscle wasting ? PT OT, ? Speech therapy aspiration precautions, ? Dysphagia level 4 diet History of interstitial lung disease History of dementia history of falls: Reviewed x-ray of bilateral hips as patient is not walking. Cortical irregularity of left pubic ramus, chronic finding favored. hypokalemia: Replace potassium. Same. DNR/DNI ? Lovenox for DVT prophylaxis -Inability to care her for herself. Disposition planning in progress. Discussed with disease case manager rn. recently had heart surgery, limited social support at home. -Patient is next of kin is Attestations Medical Necessity Statement*: Continue admission for assessment of management of pneumonia with worsened hypoxia, altered mental status, post discharge planning and arrangements. and High MDM includes amount and/or complexity of data reviewed/ordered [ resulted lab(s)/test(s), ordered lab(s)/test(s) and other healthcare professional discussion] as documented Diagnoses Physical deconditioning R53.81 Protein calorie malnutrition E46 Muscle wasting M62.50 Dehydration E86.0 UTI (urinary tract infection) N39.0 Respiratory tract infection J98.8 Altered mental status R41.82 RSV infection B33.8 Pneumonia J18.9 NSTEMI (non-ST elevated myocardial infarction) I21.4
[2023-10-27 20:00] VITALS: BP 140/90; PULSE 76; RESP 18; TEMP 36.8; O2SAT 91
[2023-10-27] MEDS: azithromycin 500 MG in sodium chloride 0.9% 250 ML 250 MG IV (20:57)
[2023-10-27] MEDS: potassium chloride oral liq 20 mEq/15 mL UDC 40 MEQ PO (21:02)
[2023-10-27] MEDS: atorvastatin 40 mg Tablet PO (21:02)
[2023-10-28] VITALS (7 sets, daily range): BP systolic 123–148; BP diastolic 75–93; PULSE 62–92; RESP 16–26; TEMP 36.4–37; O2SAT 90–98
--- NOTE | 2023-10-28 00:16 | XRR_ITS ---
PROCEDURE INFORMATION: Exam: XR Chest Exam date and time: 10/28/2023 12:25 AM Age: 88 years old Clinical indication: Shortness of breath; Additional info: Sudden SOB TECHNIQUE: Imaging protocol: Radiologic exam of the chest. Views: 1 view. COMPARISON: CT chest con [id number] 10/24/2023 4:45 PM FINDINGS: Lungs: Patchy bilateral left greater than right airspace infiltrates. Pleural spaces: Unremarkable. No pleural effusion. No pneumothorax. Heart/Mediastinum: Cardiomegaly. Bones/joints: Unremarkable. XR/XR chest 1V portable [id number] IMPRESSION: 1. Patchy bilateral left greater than right airspace infiltrates. 2. Cardiomegaly.
[2023-10-28] MEDS: FUROsemide 10 mg/mL SDV 4mL 40 MG IVP (00:29)
--- NOTE | 2023-10-28 04:33 | PC.NURSE ---
pt was incontinent once before nurse placed riley
[2023-10-28 05:57] LABS: Basophils % 0.2 %; Hematocrit 33.1 % (36-47); Lymphocytes # 1.8 10^3/uL (0.8-4.8); Lymphocytes % 20.6 %; Mean Corpuscular HGB Conc 33.5 g/dL (30-55); Mean Corpuscular Hemoglobin 27.8 pg (27-33); Mean Corpuscular Volume 82.8 fl (85-98); Mean Platelet Volume 9.5 fL (7.4-10.4); Neutrophils # 5.72 10^3/uL (1.8-7.7); Neutrophils % 66.3 %; Nucleated Red Blood Cells % 0 %; Platelet Count 291 10^3/cmm (157-399); Red Cell Distribution Width 15.8 % (12.1-15.1); White Blood Count 8.64 10^3/uL (3.29-11.43)
--- NOTE | 2023-10-28 06:00 | XR_ITS ---
WS: [id number] Exam: XR chest 1V portable [id number] Date/Time of Exam: 10/28/2023 7:06 AM Reason For Exam: Hypoxia Comparison 10/28/2023 at 12:28 a.m. Diffuse interstitial and air space infiltrate noted throughout the LEFT lung as well as the upper and lower aspects of the RIGHT lung. The lungs remain fully expanded. No pleural effusions. Superimposed changes of interstitial fibrosis and honeycombing. Heart size is top limits normal. Dextroscoliosis of the thoracic spine and degenerative changes. Bilateral apical pleural thickening. IMPRESSION: 1. Bilateral pulmonary infiltrates more extensive on the LEFT. Very little change since the last exam . 2. Superimposed chronic changes of interstitial fibrosis and honeycombing.
[2023-10-28 06:14] LABS: Anion Gap 15.3 (5-19); Blood Urea Nitrogen 19 mg/dL (8-23); Calcium 8.4 mg/dL (8.5-10.5); Carbon Dioxide 29 mmol/L (22-29); Chloride 104 mmol/L (98-107); Glucose 130 mg/dL (65-115); Osmolality Calculated 304 mOsm/kg (285-295); Potassium 3.3 mmol/L (3.5-5.1); Sodium 145 mmol/L (136-145)
[2023-10-28 06:18] LABS: Magnesium 1.9 mg/dL (1.7-2.3)
[2023-10-28 06:34] LABS: Slide Review Slide Review Perform
[2023-10-28] MEDS: pantoprazole DR 40 mg Tablet PO (08:40)
[2023-10-28] MEDS: aspirin 81 mg EC Tablet PO (08:40)
[2023-10-28] MEDS: potassium chloride oral liq 20 mEq/15 mL UDC 40 MEQ PO (08:40)
[2023-10-28] MEDS: predniSONE 20 mg Tablet 40 MG PO (08:40)
--- NOTE | 2023-10-28 09:25 | PC.CHAP ---
Pastoral Care Encounter/Spiritual Assessment Type of Contact [] Declined cardiovascular operating room nurse visit [] Patient/Family/Request visit [] Outpatient visit [] Follow-up visit [] Physician referral [] Code/Alert [] Routine visit [] Staff referral [] Actively dying [] Patient sleeping [] Family support [] [] Out of room [] Palliative care [] [] Receiving care in room [] Pre-surgical visit [] Trauma [] Long length of stay [] ICU visit [x] Other:Covid. No visit. Relational/Emotional Strength [] Patient feels connected with others/family/visitors/staff [] Distress [] Loneliness/isolation [] Abandonment Spirituality of Patient [] Person of Fatimah [] Attends Evangelical of their Fatimah [] Believes in Prayer [] Reads Bible or Congregational materials [] There are Spiritual issues to be addressed Visual Education Director Interventions [] Prayer [] Active listening [] Non-anxious presence [] Spiritual/emotional support [] Crisis/trauma care [] Spiritual counseling [] Bereavement support [] Provided bereavement packet [] Provided Bible/devotional materials [] Provided toy/stuffed animal, coloring book to patient or family member [] Provided Communion [] Anointing/[place] [] Salvation [] Completed spiritual assessment [] Other: Impact on Illness or Injury [] Angry [] Fearful [] Anxious [] Often cries [] Exhaustion [] Unable to work [] Unable to attend buddhism [] Unable to walk/stand [] Unable to read [] Unable to drive [] Unable to eat/drink [] Unable to sleep [] Unable to be with family [] Patient intubated [] Other: Summary Time spent with patient
--- NOTE | 2023-10-28 09:48 | FL_ITS ---
WS: [id number] Exam: FL barium swallow modifd [id number] Date/Time of Exam: 10/28/2023 11:27 AM Reason For Exam: Oropharyngeal dysphagia Fluoroscopy time: 4min [id number] minutes # of spot films: Modified barium swallow study was performed in conjunction with the speech therapy service. The patient experienced some difficulty swallowing at the level of the oropharynx specifically elevat ing the tongue of the hard palate to initiate swallowing. There was some spillage of barium into the vallecula. No aspiration or penetration into the laryngeal inlet was noted. IMPRESSION: 1. No aspiration or penetration identified. 2. Altered oral pharyngeal phase of swallowing as discussed above. There was some premature spillage of barium foodstuffs into the vallecula but no aspiration. A separate report with recommendations will follow from the speech therapy service.
[2023-10-28] MEDS: enoxaparin 40 mg/0.4 mL Syringe SUBCUT (18:03)
[2023-10-28] MEDS: cefTRIAXone 1,000 MG in sodium chloride 0.9% (plus) 50 ML 100 MG IV (20:08)
[2023-10-28] MEDS: atorvastatin 40 mg Tablet PO (20:39)
[2023-10-28] MEDS: azithromycin 500 MG in sodium chloride 0.9% 250 ML 250 MG IV (20:42)
--- NOTE | 2023-10-28 22:06 | P.PN_ITS ---
Subjective 2 Subjective: Sitting up in a chair. Denies new complaints. Not oriented. No pain currently. Vitals/I&O/Wt Last Vital Signs Temp 98.1 F 10/28/23 19:17 Pulse 79 10/28/23 19:17 Resp 22 H 10/28/23 19:17 BP 125/75 10/28/23 19:17 Pulse Ox 98 10/28/23 19:17 O2 Del Method High Flow Nasal Cannula 10/28/23 19:17 O2 Flow Rate 11 10/28/23 20:00 10/28/23 10/28/23 10/28/23 06:59 14:59 22:59 Intake Total 360 / 360 1020 / 1380 Output Total 1750 / 1750 300 / 300 150 / 450 Balance -1750 / -370 60 / 60 870 / 930 Weight last 48 hrs Weight 53.07 kg Weight 53.07 kg Physical Exam 2 Narrative: Sitting up in a chair. Const: COMMON NORMALS: alert; negative for patient oriented x3 GENERAL APPEARANCE: cooperative O RIENTATION/CONSCIOUSNESS: Yes awake HENMT: COMMON NORMALS: oropharynx normal Neck/C-Spine: COMMON NORMALS: no JVD Resp: COMMON NORMALS: normal respiratory effort and clear to auscultation bilaterally AUSCULTATION: clear to auscultation bilaterally Cardio: COMMON NORMALS: no JVD, regular rhythm, S1 normal heart sound present, S2 normal heart sound present and No murmurs present (Cardio) RHYTHM: regular rhythm HEART SOUNDS: S1 normal heart sound present and S2 normal heart sound present GI: COMMON NORMALS: Normal to inspection, nondistended, normoactive bowel sounds present, Soft to palpation and non-tender PALPATION: Yes Soft to palpation Extremity: COMMON NORMALS: no joint enlargement and no pedal edema Neuro: COMMON NORMALS: moves all extremities; negative for patient oriented x3 SENSORIUM/ORIENTATION: Yes alert Skin: COMMON NORMALS: no rashes or lesions noted GENERAL SKIN EXAM: no rashes or lesions noted Urinary Catheter Management: Allen: Cath Placed During This Visit: yes Reason for Continuing Indwelling Catheter: Other Urinary Catheter Date of Insertion: 10/28/23 Urinary Catheter Time of Insertion: 00:45 Data 10/28/23 05:14 10/28/23 05:14 A&P Assessment and plan (1) Physical deconditioning: (2) Protein calorie malnutrition: (3) Muscle wasting: (4) Dehydration: (5) UTI (urinary tract infection): (6) Respiratory tract infection: (7) Altered mental status: (8) RSV infection: (9) Pneumonia: (10) NSTEMI (non-ST elevated myocardial infarction): Plan Respiratory failure: Worsening hypoxia, up to 6 L oxygen requirement, subsequently switched to heated high flow. Tachypnea in the 20s. Question of possible aspiration. Underlying pneumonia. Discussed with speech therapy, obtained modified barium swallow. Altered oropharyngeal phase of swallowing, some parameters posterior barium. Intrarectally but no aspiration. Continue aspiration precautions. Some aspiration risk is present. Continue dysphagia level 6 diet, mildly thick liquids. Review of vitals, CBC, BMP. Chest x-ray. Request sputum culture. Discussed with RT. Request one-to-one sitter as she is intermittently removing oxygen and desaturating Hypokalemia: Replace. Recheck potassium. Magnesium. Altered mental status, per report has been back to baseline ? Possibly secondary to UTI, pneumonia, respiratory tract infection, dehydration -CT of the head no acute findings -Ammonia levels, TSH, troponin series Pneumonia, worsening hypoxia as above. ? Continue Rocephin, azithromycin Reviewed vitals, afebrile; CBC, no leukocytosis. Repeat chest x-ray Discussed with case management assistant. RSV bronchiolitis, ? Continue prednisone Acute dehydration, ? Off IV fluids due to elevated BNP, does not look fluid overloaded. Received Lasix overnight. Monitor SHINE. Reassess renal function, electrolytes. At risk of deficiency with IV Lasix. UTI ?continue Rocephin NSTEMI -Aspirin, statin -cardiac echo shows normal systolic function, no regional wall motion abnormalities Physical deconditioning, protein calorie malnutrition, muscle wasting ? PT OT, ? Speech therapy aspiration precautions, ? Dysphagia level 4 diet History of interstitial lung disease History of dementia history of falls: Reviewed x-ray of bilateral hips as patient is not walking. Cortical irregularity of left pubic ramus, chronic finding favored. DNR/DNI ? Lovenox for DVT prophylaxis -Inability to care her for herself. Disposition planning in progress. Discussed with case management assistant. recently had heart surgery, limited social support at home. -Patient next of kin is Attestations 2 Medical Necessity Statement*: Continue admission for assessment and management of respiratory failure. Diagnoses Physical deconditioning R53.81 Protein calorie malnutrition E46 Muscle wasting M62.50 Dehydration E86.0 UTI (urinary tract infection) N39.0 Respiratory tract infection J98.8 Altered mental status R41.82 RSV infection B33.8 Pneumonia J18.9 NSTEMI (non-ST elevated myocardial infarction) I21.4
[2023-10-29] VITALS (7 sets, daily range): BP systolic 123–149; BP diastolic 56–87; PULSE 66–88; RESP 17–24; TEMP 36.4–37.4; O2SAT 92–97; BMI 18.5
[2023-10-29] MEDS: lanolin oint 7 gm 1 APPLIC TOPICAL (05:15)
[2023-10-29 05:34] LABS: Basophils % 0.2 %; Eosinophils % 0.2 %; Hematocrit 34.1 % (36-47); Lymphocytes # 2.1 10^3/uL (0.8-4.8); Lymphocytes % 19.7 %; Mean Corpuscular HGB Conc 33.1 g/dL (30-55); Mean Corpuscular Hemoglobin 28.3 pg (27-33); Mean Corpuscular Volume 85.5 fl (85-98); Mean Platelet Volume 9.3 fL (7.4-10.4); Monocytes # 0.9 10^3/uL (0.2-0.9); Neutrophils % 69.6 %; Nucleated Red Blood Cells % 0 %; Platelet Count 318 10^3/cmm (157-399); Red Blood Count 3.99 10^6/uL (3.85-5.65); Red Cell Distribution Width 15.9 % (12.1-15.1); White Blood Count 10.49 10^3/uL (3.29-11.43)
[2023-10-29 05:55] LABS: Anion Gap 13.6 (5-19); Blood Urea Nitrogen 31 mg/dL (8-23); Calcium 9.6 mg/dL (8.5-10.5); Carbon Dioxide 31 mmol/L (22-29); Chloride 106 mmol/L (98-107); Glucose 111 mg/dL (65-115); Osmolality Calculated 311 mOsm/kg (285-295); Potassium 3.6 mmol/L (3.5-5.1); Sodium 147 mmol/L (136-145)
[2023-10-29 05:59] LABS: Slide Review Slide Review Perform
[2023-10-29] MEDS: predniSONE 20 mg Tablet 40 MG PO (08:26)
[2023-10-29] MEDS: aspirin 81 mg EC Tablet PO (08:26)
[2023-10-29] MEDS: pantoprazole DR 40 mg Tablet PO (08:26)
--- NOTE | 2023-10-29 11:33 | PC.SOCIAL ---
IMM Updated Updated pt's family on IMM. No questions voiced. Provided pt a copy. Initialed, dated, & timed copy in chart.
[2023-10-29] MEDS: enoxaparin 40 mg/0.4 mL Syringe SUBCUT (16:59)
[2023-10-29] MEDS: cefTRIAXone 1,000 MG in sodium chloride 0.9% (plus) 50 ML 100 MG IV (20:24)
[2023-10-29] MEDS: azithromycin 500 MG in sodium chloride 0.9% 250 ML 250 MG IV (20:25)
[2023-10-29] MEDS: atorvastatin 40 mg Tablet PO (20:25)
--- NOTE | 2023-10-29 21:13 | PM.PN ---
Subjective Subjective: Sitting up in bed. Able to provide history. States overall is doing okay. Noticed that her breathing has not been the best. Was noticed to be coughing by one-to-one sitter. Vitals/I&O/Wt Last Vital Signs Temp 97.6 F 10/29/23 20:00 Pulse 80 10/29/23 20:00 Resp 18 10/29/23 20:00 BP 140/80 10/29/23 20:00 Pulse Ox 95 10/29/23 20:00 O2 Del Method Nasal Cannula 10/29/23 16:00 O2 Flow Rate 12 10/29/23 10:34 10/29/23 10/29/23 10/29/23 06:59 14:59 22:59 Intake Total 480 / 480 79.167 / 559.167 Output Total 125 / 575 250 / 250 Balance -125 / 805 480 / 480 -170.833 / 309.167 Weight last 48 hrs Weight 53.569 kg Weight 53.07 kg Physical Exam Narrative: Sitting up in bed. Const: COMMON NORMALS: alert; negative for patient oriented x3 GENERAL APPEARANCE: cooperative ORIENTATION/CONSCIOUSNESS: Yes awake HENMT: COMMON NORMALS: oropharynx normal Neck/C-Spine: COMMON NORMALS: no JVD Resp: COMMON NORMALS: normal respiratory effort AUSCULTATION: rhonchi and wheezes Cardio: COMMON NORMALS: no JVD, regular rhythm, S1 normal heart sound present, S2 normal heart sound present and No murmurs present (Cardio) RHYTHM: regular rhythm HEART SOUNDS: S1 normal heart sound present and S2 normal heart sound present GI: COMMON NORMALS: Normal to inspection, nondistended, normoactive bowel sounds present, Soft to palpation and non-tender PALPATION: Yes Soft to palpation Extremity: COMMON NORMALS: no joint enlargement and no pedal edema Neuro: COMMON NORMALS: moves all extremities; negative for patient oriented x3 SENSORIUM/ORIENTATION: Yes alert Skin: COMMON NORMALS: no rashes or lesions noted GENERAL SKIN EXAM: no rashes or lesions noted Urinary Catheter Management: Allen: Cath Placed During This Visit: yes Reason for Continuing Indwelling Catheter: Accurate Measurement of Urinary Output in Critically Ill Patients Urinary Catheter Date of Insertion: 10/28/23 Urinary Catheter Time of Insertion: 00:45 Data 10/29/23 05:12 01/17/24 05:12 A&P Assessment and plan (1) Physical deconditioning: (2) Protein calorie malnutrition: (3) Muscle wasting: (4) Dehydration: (5) UTI (urinary tract infection): (6) Respiratory tract infection: (7) Altered mental status: (8) RSV infection: (9) Pneumonia: (10) NSTEMI (non-ST elevated myocardial infarction): Plan Respiratory failure: Unimproved respiratory failure. Continues to require heated high flow cannula. One-to-one sitter to help her keep the oxygen on. Noticed to be coughing by speech therapist. Seems was taking large drinks, also declined, was sat upright. Instructed on smaller steps. Discussed with speech therapist, was reassessed. For now continues with mildly thick liquids, diet downgraded to level 5 minced and moist. Continue aspiration precautions. Stop ceftriaxone, broaden antibiotic with Zosyn. Continue azithromycin. Obtain MRSA PCR. Review of vitals, CBC, BMP. Sputum culture, uncollected. Request one-to-one sitter as she is intermittently removing oxygen and desaturating Discussed with shelter case manager. Hypokalemia: Replaced. Reviewed potassium, noted 3.6. Recheck potassium. Magnesium. Altered mental status, per report has been back to baseline ? Possibly secondary to UTI, pneumonia, respiratory tract infection, dehydration -CT of the head no acute findings -Ammonia levels, TSH, troponin series Pneumonia, worsening hypoxia as above. ? Change Abx Reviewed vitals, afebrile; CBC, no leukocytosis. Repeat chest x-ray Discussed with shelter case manager. RSV bronchiolitis, ? Continue prednisone Acute dehydration, ? Off IV fluids due to elevated BNP, does not look fluid overloaded. UTI ?completed course with Rocephin NSTEMI -Aspirin, statin -cardiac echo shows normal systolic function, no regional wall motion abnormalities Physical deconditioning, protein calorie malnutrition, muscle wasting ? PT OT, ? Speech therapy aspiration precautions, ? Dysphagia level 4 diet History of interstitial lung disease History of dementia history of falls: Reviewed x-ray of bilateral hips as patient is not walking. Cortical irregularity of left pubic ramus, chronic finding favored. DNR/DNI ? Lovenox for DVT prophylaxis -Inability to care her for herself. Disposition planning in progress. Discussed with shelter case manager. recently had heart surgery, limited social support at home. -Patient next of kin is Attestations Medical Necessity Statement*: Continue admission for assessment and management of respiratory failure. and High MDM includes number and complexity of problems actively addressed during encounter and amount and/or complexity of data reviewed/ordered [ resulted lab(s)/test(s), ordered lab(s)/test(s) and other healthcare professional discussion] as documented Diagnoses Physical deconditioning R53.81 Protein calorie malnutrition E46 Muscle wasting M62.50 Dehydration E86.0 UTI (urinary tract infection) N39.0 Respiratory tract infection J98.8 Altered mental status R41.82 RSV infection B33.8 Pneumonia J18.9 NSTEMI (non-ST elevated myocardial infarction) I21.4
[2023-10-30] VITALS (7 sets, daily range): BP systolic 150–166; BP diastolic 60–98; PULSE 76–91; RESP 16–20; TEMP 36.8–37.1; O2SAT 90–97
[2023-10-30] MEDS: piperacillin-tazobactam 3.375 GM in sodium chloride 0.9% (plus) 50 ML IV ×3 (00:29→17:03)
[2023-10-30 05:45] LABS: Basophils % 0.2 %; Eosinophils % 0.1 %; Hematocrit 33.3 % (36-47); Mean Corpuscular Hemoglobin 28.1 pg (27-33); Mean Corpuscular Volume 84.9 fl (85-98); Mean Platelet Volume 9.6 fL (7.4-10.4); Monocytes # 1.2 10^3/uL (0.2-0.9); Monocytes % 9.9 %; Neutrophils # 8.93 10^3/uL (1.8-7.7); Nucleated Red Blood Cells % 0 %; Platelet Count 356 10^3/cmm (157-399); Red Blood Count 3.92 10^6/uL (3.85-5.65); Red Cell Distribution Width 16.1 % (12.1-15.1); White Blood Count 12.39 10^3/uL (3.29-11.43)
[2023-10-30 06:02] LABS: Anion Gap 12.5 (5-19); Blood Urea Nitrogen 31 mg/dL (8-23); Calcium 9.3 mg/dL (8.5-10.5); Carbon Dioxide 30 mmol/L (22-29); Chloride 110 mmol/L (98-107); Glucose 112 mg/dL (65-115); Osmolality Calculated 315 mOsm/kg (285-295); Potassium 3.5 mmol/L (3.5-5.1); Sodium 149 mmol/L (136-145)
[2023-10-30 06:16] LABS: Slide Review Slide Review Perform
[2023-10-30] MEDS: predniSONE 20 mg Tablet 40 MG PO (09:57)
[2023-10-30] MEDS: pantoprazole DR 40 mg Tablet PO (09:57)
[2023-10-30] MEDS: aspirin 81 mg EC Tablet PO (09:57)
[2023-10-30] MEDS: acetaminophen 325 mg Tablet 650 MG PO (15:17)
[2023-10-30] MEDS: enoxaparin 40 mg/0.4 mL Syringe SUBCUT (15:18)
[2023-10-30] MEDS: azithromycin 500 MG in sodium chloride 0.9% 250 ML 250 MG IV (20:40)
[2023-10-30] MEDS: atorvastatin 40 mg Tablet PO (20:46)
--- NOTE | 2023-10-30 22:15 | PM.PN ---
Subjective Subjective: Has been having some cough. So far no further cough with eating or drinking. Vitals/I&O/Wt Last Vital Signs Temp 98.5 F 10/30/23 19:30 Pulse 89 10/30/23 19:30 Resp 20 H 10/30/23 19:30 BP 150/93 10/30/23 19:30 Pulse Ox 94 10/30/23 19:30 O2 Del Method Oxymask 10/30/23 19:30 O2 Flow Rate 10 10/30/23 20:00 10/30/23 10/30/23 10/30/23 06:59 14:59 22:59 Intake Total 50 / 1070.000 530 / 530 660 / 1190 Output Total 250 / 500 480 / 480 Balance -200 / 570.000 530 / 530 180 / 710 Weight last 48 hrs Weight 53.569 kg Weight 53.569 kg Physical Exam Narrative: Sitting up in bed. Const: COMMON NORMALS: alert; negative for patient oriented x3 GENERAL APPEARANCE: cooperative ORIENTATION/CONSCIOUSNESS: Yes awake HENMT: COMMON NORMALS: oropharynx normal Neck/C-Spine: COMMON NORMALS: no JVD Resp: COMMON NORMALS: normal respiratory effort and clear to auscultation bilaterally AUSCULTATION: clear to auscultation bilaterally, crackles and wheezes Cardio: COMMON NORMALS: no JVD, regular rhythm, S1 normal heart sound present, S2 normal heart sound present and No murmurs present (Cardio) RHYTHM: regular rhythm HEART SOUNDS: S1 normal heart sound present and S2 normal heart sound present GI: COMMON NORMALS: Normal to inspection, nondistended, normoactive bowel sounds present, Soft to palpation and non-tender PALPATION: Yes Soft to palpation Extremity: COMMON NORMALS: no joint enlargement and no pedal edema Neuro: COMMON NORMALS: moves all extremities; negative for patient oriented x3 SENSORIUM/ORIENTATION: Yes alert Skin: COMMON NORMALS: no rashes or lesions noted GENERAL SKIN EXAM: no rashes or lesions noted Urinary Catheter Management: Allen: Cath Placed During This Visit: yes Reason for Continuing Indwelling Catheter: Assist Healing of Perineal & Sacral Wounds- Incontinent Patients Urinary Catheter Date of Insertion: 10/28/23 Urinary Catheter Time of Insertion: 00:45 Data 10/30/23 05:14 10/30/23 05:14 Micro: Microbiology 10/28/23 21:54 Urine Culture - Preliminary Urine Catheterized A&P Assessment and plan (1) Physical deconditioning: (2) Protein calorie malnutrition: (3) Muscle wasting: (4) Dehydration: (5) UTI (urinary tract infection): (6) Respiratory tract infection: (7) Altered mental status: (8) RSV infection: (9) Pneumonia: (10) NSTEMI (non-ST elevated myocardial infarction): Plan Respiratory failure: Persistent respiratory failure, this morning requiring 11 L oxygen mask oxygen. Still wheezing, crackles on exam. Reassessed by speech therapy, discussed with therapist, so far no additional cough with food or drink as per one-to-one sitter. Doing slightly better. Still gets easily dyspneic. This is all superimposed on chronic interstitial fibrosis and Honeycombing. Continue steroid, which risk of hypoglycemia, encephalopathy. Reviewed glucose. Antibiotics have been broadened with the Zosyn. May continue azithromycin. Reviewed vitals, CBC, leukocytosis 12.39, mostly neutrophilic, 8.93. Reviewed MRSA PCR, pending. Sputum culture uncollected. Continue one-to-one sitter for now. Discussed with immigration case manager. Hypokalemia: Replaced. Reviewed potassium, noted 3.5. Recheck potassium. Reviewed magnesium. WNL. Altered mental status, per report has been back to baseline ? Possibly secondary to UTI, pneumonia, respiratory tract infection, dehydration Pneumonia, worsening hypoxia as above. ? Changed Abx Repeat chest x-ray reviewed Discussed with immigration case manager. RSV bronchiolitis, ? Continue prednisone Acute dehydration, ? Off IV fluids due to elevated BNP, does not look fluid overloaded. UTI ?completed course with Rocephin NSTEMI -Aspirin, statin -cardiac echo shows normal systolic function, no regional wall motion abnormalities Physical deconditioning, protein calorie malnutrition, muscle wasting ? PT OT, ? Speech therapy aspiration precautions, ? Dysphagia level 4 diet History of interstitial lung disease History of dementia history of falls: Reviewed x-ray of bilateral hips as patient is not walking. Cortical irregularity of left pubic ramus, chronic finding favored. DNR/DNI ? Lovenox for DVT prophylaxis -Inability to care her for herself. Disposition planning in progress. Discussed with immigration case manager. recently had heart surgery, limited social support at home. -Patient next of kin is Attestations Medical Necessity Statement*: Continue admission for assessment and management of respiratory failure. Diagnoses Physical deconditioning R53.81 Protein calorie malnutrition E46 Muscle wasting M62.50 Dehydration E86.0 UTI (urinary tract infection) N39.0 Respiratory tract infection J98.8 Altered mental status R41.82 RSV infection B33.8 Pneumonia J18.9 NSTEMI (non-ST elevated myocardial infarction) I21.4
[2023-10-31] VITALS (9 sets, daily range): BP systolic 132–139; BP diastolic 63–91; PULSE 90–117; RESP 18–34; TEMP 37–37.7; O2SAT 89–93; BMI 18.5
[2023-10-31] MEDS: piperacillin-tazobactam 3.375 GM in sodium chloride 0.9% (plus) 50 ML IV ×3 (02:33→17:44)
[2023-10-31 05:03] LABS: Basophils % 0.2 %; Hematocrit 35.8 % (36-47); Lymphocytes # 1.7 10^3/uL (0.8-4.8); Lymphocytes % 10.6 %; Mean Corpuscular HGB Conc 32.4 g/dL (30-55); Mean Corpuscular Volume 86.3 fl (85-98); Mean Platelet Volume 9.9 fL (7.4-10.4); Monocytes # 1.7 10^3/uL (0.2-0.9); Monocytes % 10.5 %; Neutrophils # 12.56 10^3/uL (1.8-7.7); Neutrophils % 76.7 %; Nucleated Red Blood Cells % 0 %; Platelet Count 403 10^3/cmm (157-399); Red Blood Count 4.15 10^6/uL (3.85-5.65); White Blood Count 16.37 10^3/uL (3.29-11.43)
[2023-10-31 05:28] LABS: Anion Gap 19.5 (5-19); Blood Urea Nitrogen 33 mg/dL (8-23); Calcium 9.2 mg/dL (8.5-10.5); Carbon Dioxide 26 mmol/L (22-29); Chloride 111 mmol/L (98-107); Glucose 152 mg/dL (65-115); Osmolality Calculated 326 mOsm/kg (285-295); Potassium 3.5 mmol/L (3.5-5.1); Sodium 153 mmol/L (136-145)
[2023-10-31] MEDS: acetaminophen 325 mg Tablet 650 MG PO (08:06)
[2023-10-31] MEDS: pantoprazole DR 40 mg Tablet PO (08:07)
[2023-10-31] MEDS: aspirin 81 mg EC Tablet PO (08:07)
[2023-10-31] MEDS: predniSONE 20 mg Tablet 40 MG PO (08:07)
[2023-10-31] MEDS: ipratropium-albuterol 3 mL Neb INHALATION ×2 (08:25→14:58)
[2023-10-31] MEDS: methylPREDNISolone sod succ 40 mg/mL INJ 60 MG IVP ×2 (10:27→17:43)
[2023-10-31] MEDS: linezolid premix 600 MG/300 ML PREMIX 300 MG IV ×2 (10:32→23:39)
[2023-10-31 13:09] LABS: Methicillin-Resist S.aureu PCR NOT DETECTED (NOT DETECTED)
--- NOTE | 2023-10-31 13:53 | PC.SOCIAL ---
IMM Updated IMM updated. Provided pt a copy. Initialed, dated, & timed copy in chart.
[2023-10-31] MEDS: enoxaparin 40 mg/0.4 mL Syringe SUBCUT (17:43)
--- NOTE | 2023-10-31 18:00 | P.PN_ITS ---
Subjective 2 Subjective: This morning deteriorated condition with increased work of breathing, tachypnea, worsening hypoxia, respiratory failure. She is weaker, head down on the pillow, responds with one-word statements. Vitals/I&O/Wt Last Vital Signs Temp 98.7 F 10/31/23 16:00 Pulse 116 H 10/31/23 16:00 Resp 20 H 10/31/23 16:00 BP 139/91 10/31/23 16:00 Pulse Ox 93 10/31/23 16:00 O2 Del Method Heated High Flow 10/31/23 15:04 O2 Flow Rate 50 10/31/23 15:04 FiO2 50 10/31/23 15:04 10/31/23 10/31/23 10/31/23 06:59 14:59 22:59 Intake Total 50 / 1240 300 / 300 50 / 350 Output Total 150 / 630 Balance -100 / 610 300 / 300 50 / 350 Weight last 48 hrs Weight 53.705 kg Weight 53.569 kg Physical Exam 2 Narrative: Weak, tachypneic, increased work of breathing. On second visit accompanying her by the bedside. Const: COMMON NORMALS: negative for alert GENERAL APPEARANCE: cooperative HENMT: COMMON NORMALS: oropharynx normal Neck/C-Spine: COMMON NORMALS: no JVD Resp: EFFORT & INSPECTION: Yes tachypneic, Yes labored and Yes uses accessory muscles AUSCULTATION: crackles, rhonchi and wheezes Cardio: COMMON NORMALS: no JVD, regular rhythm, S1 normal heart sound present, S2 normal heart sound present and No murmurs present (Cardio) RHYTHM: regular rhythm HEART SOUNDS: S1 normal heart sound present and S2 normal heart sound present GI: COMMON NORMALS: Normal to inspection, nondistended, normoactive bowel sounds present, Soft to palpation and non-tender PALPATION: Yes Soft to palpation Extremity: COMMON NORMALS: no joint enlargement and no pedal edema Neuro: COMMON NORMALS: moves all extremities SENSORIUM/ORIENTATION: No alert Skin: COMMON NORMALS: no rashes or lesions noted GENERAL SKIN EXAM: no rashes or lesions noted Urinary Catheter Management: Allen: Cath Placed During This Visit: yes Reason for Continuing Indwelling Catheter: Other Urinary Catheter Date of Insertion: 10/28/23 Urinary Catheter Time of Insertion: 00:45 Data 10/31/23 04:40 10/31/23 04:40 Micro: Microbiology 10/28/23 21:54 Urine Culture - Final Urine Catheterized A&P Assessment and plan (1) Physical deconditioning: (2) Protein calorie malnutrition: (3) Muscle wasting: (4) Dehydration: (5) UTI (urinary tract infection): (6) Respiratory tract infection: (7) Altered mental status: (8) RSV infection: (9) Pneumonia: (10) NSTEMI (non-ST elevated myocardial infarction): Plan Respiratory failure: Reviewed vitals, CBC, BMP, worsening respiratory failure, increased work of breathing, weaker, decreased alertness. Worsened oxygen requirement. Made NPO. This morning broadened additionally antibiotics with addition of linezolid. Continue Zosyn, azithromycin. Switched steroid to IV Solu-Medrol 60 mg every 8 hours. Discussed deteriorating condition with her . Later revisited by the bedside, discussed again with her and son. Unfortunately she has not made further recovery despite treatments, adjustment of diet, aspiration precautions. Concern for superimposed aspiration pneumonitis on top of viral pneumonia, bacterial pneumonia, and with underlying interstitial lung disease. Reviewed acid-base labs, anion gap, bicarb, anion gap increased, likely lactic acid with increased work of breathing. Discussed with Respiratory therapist this morning we switched her over to heated high flow. Continue this time. With limited goals of care. Discussed with her family unfortunately prognosis appears poor. Family came to visit spent time with her. is staying overnight. They anticipate that her condition may overwhelm her and she may not make it much longer. Comfort measures could be added in case needed. This is all superimposed on chronic interstitial fibrosis and Honeycombing. Continue steroid, which risk of hypoglycemia, encephalopathy. Reviewed glucose. Continue one-to-one sitter for now. Discussed with caseworker protective services. Hypokalemia: Replaced. Reviewed potassium, noted 3.5. Recheck chemistry requested. Altered mental status, per report has been back to baseline ? Possibly secondary to UTI, pneumonia, respiratory tract infection, dehydration Pneumonia, worsening hypoxia as above. RSV bronchiolitis, As above Acute dehydration, ? Off IV fluids due to elevated BNP, does not look fluid overloaded. UTI ?completed course with Rocephin NSTEMI -Aspirin, statin -cardiac echo shows normal systolic function, no regional wall motion abnormalities Physical deconditioning, protein calorie malnutrition, muscle wasting ? PT OT, ? Speech therapy aspiration precautions, ? Dysphagia level 4 diet History of interstitial lung disease History of dementia history of falls: Reviewed x-ray of bilateral hips as patient is not walking. Cortical irregularity of left pubic ramus, chronic finding favored. DNR/DNI ? Lovenox for DVT prophylaxis -Inability to care her for herself -Patient next of kin is Attestations 2 Medical Necessity Statement*: Continue admission for assessment and management of worsened respiratory failure. and High Time for a total of 55 minutes, includes reviewing past or interval history, examining/interviewing patient, placing orders, counseling patient/family/other support, updating patient/family/other support, discussing plan of care with staff, communicating with other healthcare providers, documenting encounter and coordinating care Diagnoses Physical deconditioning R53.81 Protein calorie malnutrition E46 Muscle wasting M62.50 Dehydration E86.0 UTI (urinary tract infection) N39.0 Respiratory tract infection J98.8 Altered mental status R41.82 RSV infection B33.8 Pneumonia J18.9 NSTEMI (non-ST elevated myocardial infarction) I21.4
[2023-10-31] MEDS: azithromycin 500 MG in sodium chloride 0.9% 250 ML 250 MG IV (21:28)
[2023-11-01] VITALS (9 sets, daily range): BP systolic 94–120; BP diastolic 62–78; PULSE 102–113; RESP 18–39; TEMP 36.4–36.9; O2SAT 82–97
--- NOTE | 2023-11-01 01:41 | PM.CCNAC ---
Critical Care Event Note The high probability of a clinically significant, sudden or life threatening deterioration of the patient's [] system(s) required my full and direct attention, intervention and personal management. The critical care time is as shown. This time is in addition to time spent performing any reported procedures but includes the following: [x] Data and vital sign review and interpretation [x] Patient assessment, examination and intervention [x] Documentation [x] Medication orders and management Critical Care Time Code activated: No Critical Care Time (min): 35 Additional information about critical care time: Patient's chart was reviewed in detail, patient is currently in respiratory failure, is on broad-spectrum antibiotic therapy, broad-spectrum steroid therapy, is on heated high flow, concerns for aspiration pneumonia, with super impose aspiration pneumonitis on top of viral pneumonia, bacterial pneumonia, underlying interstitial lung disease, with acute encephalopathy, with dementia, DNR/DNI -According to nursing staff, patient's has voiced that he has had a discussion with patient's son and daughter, and he wants to proceed with comfort care -On examination, patient is alert oriented x 0, she does not respond to her name does not respond to sternal rub, she is in acute respiratory distress, tachypneic respiratory 30-35, suprasternal retractions, intercostal retractions, diffuse wheezing and crackles, tachycardic, on 50 L heated high flow, nasal flaring, - is at bedside - tells me that he does not want Teresita to suffer anymore, they have been for over 65 years, and he is surprised she is lasted this long, but he does not want her to suffer anymore, given her respiratory distress currently he is worried that she is suffering -I had a detailed discussion with him about continuing medical interventions versus comfort care -Patient's wants to proceed with comfort care -I discussed with patient's what comfort care entails, which is stopping all medical interventions stopping all antibiotics, putting on 2 L for comfort, giving her morphine, Ativan, to ease her pain and ease her suffering and allowing her to pass away comfortably, it is not to hasten her but to ease her pain currently I could see his worry that she is suffering with her acute respiratory distress, and she is nonresponsive -We will give her morphine, to ease her pain and ease her suffering allow her to breathe more comfortably, additional pain medications to ease her pain and ease her suffering -I advised him that proceeding with comfort care likely result will result in her morbidity and mortality, will result in her -He tells me he does not want Teresita to suffer anymore, he just wants her to be comfortable, for us to ease her pain and ease her suffering he does want to see her in this way -After discussing with him the risks and benefits of comfort care, he voiced understanding, all questions answered, shared decision making -Proceed with comfort care -Will place on 2 L, start comfort care order sets, stop antibiotics stop steroids stop blood draws Coding Level of Care Code Acute Code for [facility]
[2023-11-01] MEDS: morphine 4 mg/mL SDV 1 mL 2 MG IVP (02:07)
[2023-11-01] MEDS: LORazepam 2 mg/mL INJ 10 mL MDV 1 MG IVP (02:21)
[2023-11-01] MEDS: morphine 4 mg/mL SDV 1 mL 1 MG IVP (02:30)
[2023-11-01] MEDS: morphine 4 mg/mL SDV 1 mL IVP ×11 (03:44→21:26)
--- NOTE | 2023-11-01 20:07 | P.PN_ITS ---
Subjective 2 Subjective: She has not been responding. Weak. Increased work of breathing. Vitals/I&O/Wt Last Vital Signs Temp 97.5 F L 11/01/23 08:00 Pulse 108 H 11/01/23 08:00 Resp 24 H 11/01/23 19:49 BP 105/71 11/01/23 08:00 Pulse Ox 92 11/01/23 08:00 O2 Del Method Heated High Flow 11/01/23 00:00 O2 Flow Rate 2 11/01/23 19:59 FiO2 50 11/01/23 00:00 11/01/23 11/01/23 11/01/23 06:59 14:59 22:59 Intake Total 300 / 950 Balance 300 / 800 Weight last 48 hrs Weight 52.798 kg Weight 53.705 kg Physical Exam 2 Narrative: Weak, tachypneic, increased work of breathing. is by her side. Const: COMMON NORMALS: negative for patient oriented x3 and negative for alert GENERAL APPEARANCE: cooperative ORIENTATION/CONSCIOUSNESS: Yes awake HENMT: COMMON NORMALS: oropharynx normal Neck/C-Spine: COMMON NORMALS: no JVD Resp: COMMON NORMALS: normal respiratory effort and clear to auscultation bilaterally EFFORT & INSPECTION: Yes tachypneic, Yes labored and Yes uses accessory muscles AUSCULTATION: clear to auscultation bilaterally, crackles, rhonchi and wheezes Cardio: COMMON NORMALS: no JVD, regular rhythm, S1 normal heart sound present, S2 normal heart sound present and No murmurs present (Cardio) RHYTHM: regular rhythm HEART SOUNDS: S1 normal heart sound present and S2 normal heart sound present GI: COMMON NORMALS: Normal to inspection, nondistended, normoactive bowel sounds present, Soft to palpation and non-tender PALPATION: Yes Soft to palpation Extremity: COMMON NORMALS: no joint enlargement and no pedal edema Neuro: COMMON NORMALS: moves all extremities; negative for patient oriented x3 SENSORIUM/ORIENTATION: No alert Skin: COMMON NORMALS: no rashes or lesions noted GENERAL SKIN EXAM: no rashes or lesions noted Urinary Catheter Management: Allen: Cath Placed During This Visit: yes Reason for Continuing Indwelling Catheter: Hospice/Comfort/Palliative Care Urinary Catheter Date of Insertion: 10/28/23 Urinary Catheter Time of Insertion: 00:45 Data 10/31/23 04:40 10/31/23 04:40 A&P Assessment and plan (1) Physical deconditioning: (2) Protein calorie malnutrition: (3) Muscle wasting: (4) Dehydration: (5) UTI (urinary tract infection): (6) Respiratory tract infection: (7) Altered mental status: (8) RSV infection: (9) Pneumonia: (10) NSTEMI (non-ST elevated myocardial infarction): Plan Respiratory failure: Severe progressive respiratory failure. Unimproved. Reviewed overnight documentation. Overnight has been started on comfort measures. Discussed with her , unfortunately condition is overwhelming her and will take her life. She is unable to provide history or review of systems. Per history obtained from the she is more comfortable this morning. Continue parenteral morphine, Ativan as needed for pain and/for anxiety. Antibiotics, steroids have been discontinued. Superimposed on chronic interstitial fibrosis and Honeycombing with RSV infection, bacterial pneumonia, aspiration pneumonia/pneumonitis. Hypokalemia Altered mental status, per report has been back to baseline ? Possibly secondary to UTI, pneumonia, respiratory tract infection, dehydration Pneumonia, Unimproved, with worsened respiratory failure. RSV bronchiolitis, As above Acute dehydration, ? Off IV fluids due to elevated BNP, does not look fluid overloaded. UTI ?completed course with Rocephin NSTEMI -Aspirin, statin -cardiac echo shows normal systolic function, no regional wall motion abnormalities Physical deconditioning, protein calorie malnutrition, muscle wasting ? PT OT, ? Speech therapy aspiration precautions, ? Dysphagia level 4 diet History of interstitial lung disease History of dementia History of falls: Reviewed x-ray of bilateral hips as patient is not walking. Cortical irregularity of left pubic ramus, chronic finding favored. DNR/DNI Attestations 2 Medical Necessity Statement*: Continue admission for end-of-life care with progressively worsened respiratory failure. and High MDM includes number and complexity of problems actively addressed during encounter and described risk of complication, morbidity or mortality of management as documented Diagnoses Physical deconditioning R53.81 Protein calorie malnutrition E46 Muscle wasting M62.50 Dehydration E86.0 UTI (urinary tract infection) N39.0 Respiratory tract infection J98.8 Altered mental status R41.82 RSV infection B33.8 Pneumonia J18.9 NSTEMI (non-ST elevated myocardial infarction) I21.4
[2023-11-01] MEDS: LORazepam 2 mg/mL INJ 10 mL MDV IVP (22:04)
[2023-11-02 00:29] VITALS: RESP 24
[2023-11-02] MEDS: morphine 4 mg/mL SDV 1 mL IVP ×3 (00:29→06:26)
[2023-11-02 04:01] VITALS: RESP 28
[2023-11-02 06:26] VITALS: RESP 24
[2023-11-02 08:00] VITALS: PULSE 89; RESP 20; O2SAT 95
[2023-11-02] MEDS: blistex lip oint 7 gm Tube 1 APPLIC TOPICAL (10:45)
[2023-11-02] MEDS: morphine 10 mg/0.5 mL oral liq UD SUBLINGUAL (10:46)
--- NOTE | 2023-11-02 13:29 | PC.NURSE ---
MTS notified of patient passing. Full release from [facility]
[2023-11-02 15:39] VITALS: PULSE 0
--- NOTE | 2023-11-02 16:29 | P.DES_ITS ---
Discharge Providers DDS Date of Admission: 10/24/23 16:17 Date Summary Completed: 11/02/23 Attending Provider at Admission: Jack De La Rosa MD Time of : 12:45 Attending Provider at Discharge: Pawel Ambriz Primary Care Provider: Clauido DERAS Diagnoses Hospital Diagnoses (1) Physical deconditioning: (2) Protein calorie malnutrition: (3) Muscle wasting: (4) Dehydration: (5) UTI (urinary tract infection): (6) Respiratory tract infection: (7) Altered mental status: (8) RSV infection: (9) Pneumonia: (10) NSTEMI (non-ST elevated myocardial infarction): Reason for Visit Reason for Visit weakness Summary Date and Time of Date of : 11/02/23 Time of : 12:45 Summary Summary: 88-year-old lady with history of dementia, arctic aneurysm, interstitial lung disease was admitted after presenting with weakness, increased confusion, poor appetite, cough and congestion, recently has had some falls resulting in several fractures, over the week prior to admission looking very ill, short of breath, not eating or drinking, increasingly confused. Bedbound. On presentation found to have urinary tract infection, respiratory tract infection, possible aspiration, was started on Rocephin, acute encephalopathy suspected secondary to UTI, pneumonia, respiratory viral panel subsequently revealed RSV infection. With suspected superimposed bacterial pneumonia, continue with ceftriaxone, azithromycin was added, received prednisone, breathing treatments. On presentation with moderate troponin elevation with flat trend. Was continued on aspirin, statin, assessed with cardiac echo which showed normal systolic function, ejection fraction, no regional wall motion abnormalities, grade 1 diastolic dysfunction mild to moderate AVR, mild MVR, mild TVR. She showed some transient improvement in her mental status, however, oxygenation after mild initial improvement continue to worsen in stepwise fashion. With finding of episode of aspiration diet was adjusted, seen by speech therapy maintain aspiration precautions. One-to-one sitter had to be obtained to help keep oxygen on due to dementia, her inadvertently taking it off repeatedly. Additionally noticed and was repeatedly reeducated regarding aspiration precautions. Was assessed by modified barium swallow. Still with possible additional small aspiration events. Antibiotics were broadened with Zosyn, subsequently with addition of linezolid. Steroids intensified with IV Solu- Medrol, made NPO. Still with progressive respiratory failure, hypoxia, increased work of breathing and tiring out. Breathing supported with heated high flow cannula. Condition discussed with family. Eventually with lack of improvement/worsening respiratory failure, overwhelmed by the condition, comorbidities and limited goals of care, switched to comfort measures, passing away this afternoon. Additional Data Advance directives?: Yes Discharge Plan Discharge Patient Disposition: Condition: Prescriptions: No Action donepezil 5 mg tablet 5 mg PO DAILY buspirone 10 mg tablet 10 mg PO BID losartan 25 mg Tablet 25 mg PO DAILY hydrochlorothiazide 25 mg tablet 25 mg PO DAILY PreserVision AREDS-2 250-90-40-1 mg Capsule 1 tab PO BID Referrals: Claudio Parrish [Primary Care Provider] - Patient Instructions: Opioid Safety DS Attestations Time Spent in /Discharge Care*: greater than 30 min Quality - AMI: AMI present?: No Quality - Stroke: CVA present?: No Symptom Onset Unknown: No Quality - VTE: VTE present?: No Deep Vein Thrombosis/Pulmonary Embolism Present on Admission: No Coding Level of Care Code 28383 Total time (in minutes) for Discharge: 40 Diagnoses Physical deconditioning R53.81 Protein calorie malnutrition E46 Muscle wasting M62.50 Dehydration E86.0 UTI (urinary tract infection) N39.0 Respiratory tract infection J98.8 Altered mental status R41.82 RSV infection B33.8 Pneumonia J18.9 NSTEMI (non-ST elevated myocardial infarction) I21.4
== END 2023-11-02 15:40 | disposition expired | DRG 193 ==
LOC: ER 16:29 → ER IP 18:13 → MEDSURG 18:39
PROVIDERS: Admitting Provider Family Medicine; Emergency Provider Physician Assistant; PCP Family Medicine; Visit Provider Internal Medicine
DX: J15.9 Unspecified bacterial pneumonia (principal); I21.4 Non-ST elevation (NSTEMI) myocardial infarction; J80 Acute respiratory distress syndrome; J21.0 Acute bronchiolitis due to respiratory syncytial virus; E46 Unspecified protein-calorie malnutrition; Z68.1 Body mass index [BMI] 19.9 or less, adult; N39.0 Urinary tract infection, site not specified; G93.40 Encephalopathy, unspecified; F03.90 Unspecified dementia, unspecified severity, without behavioral disturbance, psychotic disturbance, mood disturbance, and anxiety; J84.10 Pulmonary fibrosis, unspecified; I71.40 Abdominal aortic aneurysm, without rupture, unspecified; E86.0 Dehydration; Z66 Do not resuscitate; E87.6 Hypokalemia; Z11.52 Encounter for screening for COVID-19; Z51.5 Encounter for palliative care; Z91.81 History of falling
CPT/HCPCS: 36415; 51701; 51702; 70450; 71045; 71250; 73522; 74230; 80048; 80053; 81001; 82140; 82550; 83605; 83735; 83880; 84100; 84145; 84439; 84481; 84484; 85025; 86140; 87086; 87486; 87581; 87633; 87641; 92526; 92610; 92611; 93005; 93306; 94640; 94664; 96372; 97110; 97116; 97161; 97165; 97530; 97535; 99285; C9113; J0456; J0696; J1650; J1940; J2020; J2060; J2270; J2543; J2920; J2930; J7040; J7042; J7050; J7512; Q3014